=== PATIENT | male | born 1950 | race African-American/Black ===

== ENCOUNTER 2018-04-16 12:48 | Observation (INO) ==
[2018-04-16 13:18] LABS: Basophils % 0.4 % (0.0-0.8); Eosinophils # 0.1 10*3/uL (0.0-0.87); Eosinophils % 0.9 % (0.00-10.9); Hematocrit 38.5 VOL% (42.0-52.0); Hemoglobin 12.6 GM/DL (14.0-18.0); Immature Granulocytes % 0.5 %; Immature Granulocytes Absolute 0.04 #; Lymphocytes # 1.9 10*3/uL (1.4-4.0); Mean Corpuscular HGB Conc 32.7 GM/DL (32-36); Mean Corpuscular Hemoglobin 29 PG (27-34); Mean Corpuscular Volume 87.7 FL (87-102); Mean Platelet Volume 11.1 FL (9.6-12.0); Monocytes # 0.6 10*3/uL (0.11-0.8); Monocytes % 7.3 % (1.7-12.7); Neutrophils # 5.5 10*3/uL (1.4-7.4); Neutrophils % 67.9 % (38.7-73.9); Platelet Count 121 T/CUMM (130-400); Red Blood Count 4.39 MC/CUMM (3.8-5.5); Red Cell Distribution Width 13.7 % (9.3-17.3); White Blood Count 8.1 T/CUMM (4-12)
[2018-04-16 13:32] LABS: PT Patient Result 10.5 SECS; Partial Thromboplastin Time 25.8 SECS (0-40)
[2018-04-16 13:35] LABS: Alanine Aminotransferase 23 U/L (16-61); Albumin 3.5 G/DL (3.4-5.0); Alkaline Phosphatase 85 U/L (45-117); Aspartate Amino Transferase 15 U/L (0-37); Blood Urea Nitrogen 31 MG/DL (7-18); Calcium 10.1 MG/DL (8.5-10.1); Glucose 152 MG/DL (74-106); Osmolality,Calculated 290.3 MOS/KG (273-304); Potassium 4.8 MMOL/L (3.5-5.1); Sodium 141 MMOL/L (136-145); Troponin I < 0.015 NG/ML (0.00-0.045)
[2018-04-16 15:57] LABS: Apearance,Urine CLEAR (Clear); Bilirubin,Urine Negative (Negative); Blood, Urine Negative (Negative); Glucose,Urine (UA) Negative (Negative); Ketones,Urine Negative (Negative); Nitrite,Urine Negative (Negative); Protein,Urine Negative; RBC,Urine <1 /HPF (0-4); Urine Color Yellow (Yellow); Urine Specific Gravity 1.014 (1.001-1.035); Urine Urobilinogen < 2.0 EU/DL (0.2-1.0); WBC,Urine 1 /HPF (0-6)
[2018-04-16 16:10] LABS: Free T4 (Free Thyroxine) 0.98 NG/DL (0.76-1.46); Thyroid Stimulating Hormone 0.615 uIU/ml (0.358-3.74)
[2018-04-16] MEDS ORDERED: GLUCAGON 1 MG VIAL IM PRN (18:28)
[2018-04-16] MEDS ORDERED: DOCUSATE SODIUM 100 MG CAPSULE PO PRN (18:28)
[2018-04-16] MEDS ORDERED: ONDANSETRON 4 MG/2 ML VIAL IV PRN (18:28)
[2018-04-16] MEDS ORDERED: LACTULOSE 20 GM/30 ML UDCUP PO PRN (18:28)
[2018-04-16] MEDS ORDERED: DEXTROSE 50% 25 GM/50 ML VIAL IV PRN (18:28)
[2018-04-16] MEDS ORDERED: ACETAMINOPHEN 325 MG TABLET PO PRN (18:28)
[2018-04-16] MEDS ORDERED: INSULIN GLARGINE 100 UNIT/ML SUBCUT SCH (21:00)
[2018-04-16] MEDS ORDERED: ATORVASTATIN 20 MG TABLET PO SCH (21:00)
[2018-04-16] MEDS ORDERED: ENOXAPARIN 40 MG/0.4 ML SYRINGE SUBCUT SCH (21:00)
[2018-04-16] MEDS ORDERED: FAMOTIDINE 20 MG TABLET PO SCH (21:00)
[2018-04-16] MEDS ORDERED: LOSARTAN 50 MG TABLET PO SCH (21:00)
[2018-04-16] MEDS: CARVEDILOL 6.25 MG TABLET PO SCH (21:20)
[2018-04-16] MEDS: FUROSEMIDE 20 MG/2 ML VIAL IV SCH (21:20)
[2018-04-16] MEDS: INSULIN LISPRO 100 UNIT/ML SUBCUT SCH (21:25)
[2018-04-16] MEDS: MYCOPHENOLATE MOFETIL 250 MG CAPSULE PO SCH (21:25)
[2018-04-16] MEDS: TACROLIMUS 0.5 MG CAPSULE PO SCH (21:26)
[2018-04-17 05:29] LABS: Basophils % 0.4 % (0.0-0.8); Eosinophils # 0.1 10*3/uL (0.0-0.87); Eosinophils % 1.7 % (0.00-10.9); Hemoglobin 11.7 GM/DL (14.0-18.0); Immature Granulocytes % 0.4 %; Immature Granulocytes Absolute 0.03 #; Lymphocytes % 28.2 % (21.2-54.2); Mean Corpuscular HGB Conc 31.6 GM/DL (32-36); Mean Corpuscular Hemoglobin 28 PG (27-34); Mean Corpuscular Volume 88.7 FL (87-102); Mean Platelet Volume 11.5 FL (9.6-12.0); Monocytes # 0.8 10*3/uL (0.11-0.8); Neutrophils # 4.1 10*3/uL (1.4-7.4); Neutrophils % 58.3 % (38.7-73.9); Platelet Count 109 T/CUMM (130-400); Red Blood Count 4.17 MC/CUMM (3.8-5.5); Red Cell Distribution Width 13.9 % (9.3-17.3); White Blood Count 7.1 T/CUMM (4-12)
[2018-04-17 05:58] LABS: Osmolality,Calculated 291.1 MOS/KG (273-304); Potassium 4.3 MMOL/L (3.5-5.1); Risk Ratio 3.67; VLDL CHOLESTEROL 33.8 MG/DL
[2018-04-17] MEDS ORDERED: INSULIN LISPRO 100 UNIT/ML SUBCUT SCH (08:00)
[2018-04-17] MEDS: MYCOPHENOLATE MOFETIL 250 MG CAPSULE PO SCH (08:45)
[2018-04-17] MEDS: TACROLIMUS 0.5 MG CAPSULE PO SCH (08:45)
[2018-04-17] MEDS: FUROSEMIDE 20 MG/2 ML VIAL IV SCH (08:46)
[2018-04-17] MEDS: CARVEDILOL 6.25 MG TABLET PO SCH (08:46)
[2018-04-17] MEDS: INSULIN LISPRO 100 UNIT/ML SUBCUT SCH (08:47)
[2018-04-17] MEDS ORDERED: ALLOPURINOL 100 MG TABLET PO SCH (09:00)
[2018-04-17] MEDS ORDERED: predniSONE 5 MG TABLET PO SCH (09:00)
[2018-04-17] MEDS ORDERED: PANTOPRAZOLE 40 MG TABLET PO SCH (09:00)
[2018-04-17] MEDS ORDERED: CHOLECALCIFEROL 1,000 UNIT TABLET PO SCH (09:00)
[2018-04-17] MEDS ORDERED: ASPIRIN CHEW 81 MG TABLET PO SCH (09:00)
[2018-04-17 10:52] VITALS: BP 149/72
== END 2018-04-17 10:45 | disposition home or self-care (01) ==
LOC: N.EDINP 12:48 → N.ED 12:48 → N.5E 18:59
PROVIDERS: ADMIT Internal Medicine; ATTEND Internal Medicine

== ENCOUNTER 2021-07-04 21:54 | Inpatient (IN) ==
[2021-07-04 23:21] LABS: Basophils % 0.2 % (0.0-0.8); Eosinophils % 0.1 % (0.00-10.9); Hematocrit 33.5 VOL% (42.0-52.0); Hemoglobin 11.1 GM/DL (14.0-18.0); Immature Granulocytes % 0.8 %; Immature Granulocytes Absolute 0.13 #; Lymphocytes # 1.7 10*3/uL (1.4-4.0); Lymphocytes % 11.1 % (21.2-54.2); Mean Corpuscular HGB Conc 33.1 GM/DL (32-36); Mean Corpuscular Volume 87.9 FL (87-102); Mean Platelet Volume 10.3 FL (9.6-12.0); Monocytes % 10.1 % (1.7-12.7); Neutrophils % 77.7 % (38.7-73.9); Platelet Count 134 T/CUMM (130-400); Red Blood Count 3.81 MC/CUMM (3.8-5.5); Red Cell Distribution Width 13.3 % (9.3-17.3); White Blood Count 15.4 T/CUMM (4-12)
[2021-07-04 23:29] LABS: INR 1.1; PT Patient Result 12.4 SECS (10.5-12.0)
[2021-07-05 00:47] LABS: Alanine Aminotransferase 16 U/L (16-61); Alkaline Phosphatase 84 U/L (45-117); Aspartate Amino Transferase 24 U/L (0-37); Blood Urea Nitrogen 55 MG/DL (7-18); Calcium 9.4 MG/DL (8.5-10.1); Carbon Dioxide 23 MMOL/L (21-32); Estimated Glom Filtration Rate 56 ML/MIN; Glucose 91 MG/DL (74-106); Osmolality,Calculated 284.1 MOS/KG (273-304); Potassium 4.3 MMOL/L (3.5-5.1); Sodium 135 MMOL/L (136-145); Total Protein 6.7 G/DL (6.4-8.2)
[2021-07-05 01:35] LABS: Lactic Acid 2.5 MMOL/L (0.4-2.0)
[2021-07-05 01:59] LABS: Bilirubin,Urine Negative (Negative); Blood, Urine Negative (Negative); Glucose,Urine (UA) 100 mg/dL (Negative); Granular Casts,Urine 1 /LPF (0-1); Hyaline Casts,Urine 56 /LPF (0-3); Ketones,Urine Negative (Negative); Nitrite,Urine Negative (Negative); Protein,Urine Negative; RBC,Urine 1 /HPF (0-4); Urine Appearance Clear (Clear); Urine Color Yellow (Yellow)
[2021-07-05 02:00] LABS: Urine Urobilinogen 0.2 EU/DL (<2.0)
[2021-07-05] MEDS ORDERED: PIPERACILLIN/TAZOBACTAM 3,375 MG in SODIUM CHLORIDE 0.9% 100 ML IV STA (02:05)
[2021-07-05 02:29] LABS: Reactive Lymphocytes 1+
[2021-07-05 02:30] LABS: Hypochromia 1+; Platelet Estimate Normal
[2021-07-05 02:31] LABS: Microcytosis 1+
[2021-07-05] MEDS ORDERED: DEXTROSE 10% 250 ML BAG IV PRN (03:08)
[2021-07-05] MEDS ORDERED: GLUCAGON 1 MG VIAL IM PRN (03:08)
[2021-07-05] MEDS ORDERED: hydrALAZINE 20 MG/1 ML VIAL IV PRN (03:08)
[2021-07-05] MEDS ORDERED: MORPHINE 4 MG/1 ML VIAL IV PRN (03:08)
[2021-07-05 04:32] LABS: Risk Ratio 2.39; Thyroid Stimulating Hormone 0.43 uIU/ml (0.358-3.74); VLDL Cholesterol 19.6 MG/DL
[2021-07-05] MEDS: FUROSEMIDE 40 MG/4 ML VIAL IV SCH ×3 (05:08→17:02)
[2021-07-05] MEDS: ALBUTEROL/IPRATROPIUM 3 ML NEB RESP TX SCH ×3 (07:55→19:33)
[2021-07-05] MEDS: PIPERACILLIN/TAZOBACTAM 3,375 MG in SODIUM CHLORIDE 0.9% 100 ML IV SCH ×2 (09:50→18:58)
[2021-07-05] MEDS: INSULIN LISPRO 100 UNIT/ML SUBCUT SCH ×4 (10:15→21:35)
[2021-07-05] MEDS: PANTOPRAZOLE 40 MG TABLET PO SCH (10:16)
[2021-07-05] MEDS: ENOXAPARIN 40 MG/0.4 ML SYRINGE SUBCUT SCH (10:16)
[2021-07-05] MEDS: ACETAMINOPHEN 325 MG TABLET PO PRN (22:51)
[2021-07-06] MEDS: ALBUTEROL/IPRATROPIUM 3 ML NEB RESP TX SCH ×4 (00:24→19:26)
[2021-07-06] MEDS: PIPERACILLIN/TAZOBACTAM 3,375 MG in SODIUM CHLORIDE 0.9% 100 ML IV SCH ×3 (02:20→21:46)
[2021-07-06 05:13] LABS: Basophils % 0.2 % (0.0-0.8); Eosinophils # 0.1 10*3/uL (0.0-0.87); Hemoglobin 10.4 GM/DL (14.0-18.0); Immature Granulocytes % 0.8 %; Immature Granulocytes Absolute 0.11 #; Lymphocytes # 1.6 10*3/uL (1.4-4.0); Lymphocytes % 11.8 % (21.2-54.2); Mean Corpuscular HGB Conc 32.5 GM/DL (32-36); Mean Corpuscular Volume 87.2 FL (87-102); Mean Platelet Volume 10.2 FL (9.6-12.0); Monocytes % 10.6 % (1.7-12.7); Neutrophils % 75.6 % (38.7-73.9); Platelet Count 151 T/CUMM (130-400); Red Blood Count 3.67 MC/CUMM (3.8-5.5); Red Cell Distribution Width 13.3 % (9.3-17.3); White Blood Count 13.6 T/CUMM (4-12)
[2021-07-06 05:35] LABS: Calcium 9.5 MG/DL (8.5-10.1); Osmolality,Calculated 289.5 MOS/KG (273-304); Potassium 4.6 MMOL/L (3.5-5.1)
[2021-07-06] MEDS: FUROSEMIDE 40 MG/4 ML VIAL IV SCH (09:23)
[2021-07-06] MEDS: INSULIN LISPRO 100 UNIT/ML SUBCUT SCH ×4 (09:26→21:48)
[2021-07-06] MEDS ORDERED: VANCOMYCIN INJ 2,000 MG in SODIUM CHLORIDE 0.9% 500 ML IV PRN (11:58)
[2021-07-06] MEDS: carvediloL 12.5 MG TABLET PO SCH ×2 (11:59→21:48)
[2021-07-06] MEDS: FAMOTIDINE 20 MG TABLET PO SCH (11:59)
[2021-07-06] MEDS: ENOXAPARIN 40 MG/0.4 ML SYRINGE SUBCUT SCH (11:59)
[2021-07-06] MEDS: ASPIRIN CHEW 81 MG TABLET PO SCH (11:59)
[2021-07-06] MEDS ORDERED: VANCOMYCIN INJ 2,000 MG in SODIUM CHLORIDE 0.9% 250 ML IV SCH (12:00)
[2021-07-06] MEDS: predniSONE 5 MG TABLET PO SCH (12:13)
[2021-07-06] MEDS: PANTOPRAZOLE 40 MG TABLET PO SCH (12:13)
[2021-07-06] MEDS: CHOLECALCIFEROL 1,000 UNIT TABLET PO SCH (12:14)
[2021-07-06] MEDS: TACROLIMUS 5 MG PO SCH (12:14)
[2021-07-06] MEDS ORDERED: VANCOMYCIN INJ 2,500 MG in SODIUM CHLORIDE 0.9% 500 ML IV ONE (14:00)
[2021-07-06] MEDS ORDERED: LOSARTAN 50 MG TABLET PO SCH (19:00)
[2021-07-06] MEDS: ATORVASTATIN 20 MG TABLET PO SCH (21:48)
[2021-07-06] MEDS: allopurinoL 100 MG TABLET PO SCH (21:48)
[2021-07-06] MEDS: INSULIN GLARGINE 100 UNIT/ML SUBCUT SCH (21:49)
[2021-07-06] MEDS: MYCOPHENOLATE MOFETIL 250 MG CAPSULE PO SCH (22:06)
[2021-07-06] MEDS: TACROLIMUS 4 MG PO SCH (22:06)
[2021-07-07] MEDS: ALBUTEROL/IPRATROPIUM 3 ML NEB RESP TX SCH ×4 (00:24→18:58)
[2021-07-07] MEDS: PIPERACILLIN/TAZOBACTAM 3,375 MG in SODIUM CHLORIDE 0.9% 100 ML IV SCH ×2 (05:01→09:50)
[2021-07-07 05:24] LABS: Basophils % 0.3 % (0.0-0.8); Eosinophils # 0.1 10*3/uL (0.0-0.87); Eosinophils % 1.1 % (0.00-10.9); Hematocrit 30.1 VOL% (42.0-52.0); Hemoglobin 9.7 GM/DL (14.0-18.0); Immature Granulocytes % 0.5 %; Immature Granulocytes Absolute 0.06 #; Lymphocytes # 1.6 10*3/uL (1.4-4.0); Lymphocytes % 13.5 % (21.2-54.2); Mean Corpuscular HGB Conc 32.2 GM/DL (32-36); Mean Corpuscular Volume 89.1 FL (87-102); Mean Platelet Volume 10.6 FL (9.6-12.0); Monocytes % 10.6 % (1.7-12.7); Platelet Count 143 T/CUMM (130-400); Red Blood Count 3.38 MC/CUMM (3.8-5.5); Red Cell Distribution Width 13.5 % (9.3-17.3); White Blood Count 11.7 T/CUMM (4-12)
[2021-07-07 05:47] LABS: Calcium 9.6 MG/DL (8.5-10.1); Osmolality,Calculated 296.2 MOS/KG (273-304); Potassium 4.4 MMOL/L (3.5-5.1)
[2021-07-07] MEDS: INSULIN LISPRO 100 UNIT/ML SUBCUT SCH ×4 (08:37→21:16)
[2021-07-07] MEDS: TACROLIMUS 5 MG PO SCH (08:38)
[2021-07-07] MEDS: carvediloL 12.5 MG TABLET PO SCH ×2 (08:40→21:13)
[2021-07-07] MEDS: predniSONE 5 MG TABLET PO SCH (08:40)
[2021-07-07] MEDS: PANTOPRAZOLE 40 MG TABLET PO SCH (08:40)
[2021-07-07] MEDS: FAMOTIDINE 20 MG TABLET PO SCH (08:40)
[2021-07-07] MEDS: MYCOPHENOLATE MOFETIL 250 MG CAPSULE PO SCH ×2 (08:40→21:15)
[2021-07-07] MEDS: CHOLECALCIFEROL 1,000 UNIT TABLET PO SCH (08:41)
[2021-07-07] MEDS: ASPIRIN CHEW 81 MG TABLET PO SCH (08:41)
[2021-07-07] MEDS ORDERED: AMPICILLIN INJ 2,000 MG in SODIUM CHLORIDE 0.9% 100 ML IV SCH (16:00)
[2021-07-07] MEDS: CEFEPIME 1,000 MG in SODIUM CHLORIDE 0.9% 100 ML IV SCH ×2 (16:35→23:40)
[2021-07-07] MEDS: GENTAMICIN INJ 100 MG in SODIUM CHLORIDE 0.9% 100 ML IV SCH (17:38)
[2021-07-07] MEDS: ATORVASTATIN 20 MG TABLET PO SCH (21:13)
[2021-07-07] MEDS: allopurinoL 100 MG TABLET PO SCH (21:13)
[2021-07-07] MEDS: INSULIN GLARGINE 100 UNIT/ML SUBCUT SCH (21:14)
[2021-07-07] MEDS: TACROLIMUS 4 MG PO SCH (21:16)
[2021-07-07] MEDS: metroNIDAZOLE INJ 500 MG/100 ML PREMIX IV SCH (21:27)
[2021-07-08] MEDS: ALBUTEROL/IPRATROPIUM 3 ML NEB RESP TX SCH ×4 (01:49→19:14)
[2021-07-08] MEDS: ACETAMINOPHEN 325 MG TABLET PO PRN (03:08)
[2021-07-08 04:40] LABS: Basophils % 0.3 % (0.0-0.8); Eosinophils # 0.1 10*3/uL (0.0-0.87); Eosinophils % 0.7 % (0.00-10.9); Hematocrit 29.4 VOL% (42.0-52.0); Hemoglobin 9.6 GM/DL (14.0-18.0); Immature Granulocytes % 0.8 %; Immature Granulocytes Absolute 0.09 #; Lymphocytes # 1.3 10*3/uL (1.4-4.0); Lymphocytes % 11.1 % (21.2-54.2); Mean Corpuscular HGB Conc 32.7 GM/DL (32-36); Mean Corpuscular Volume 87.5 FL (87-102); Mean Platelet Volume 10.1 FL (9.6-12.0); Monocytes % 10.9 % (1.7-12.7); Neutrophils % 76.2 % (38.7-73.9); Platelet Count 149 T/CUMM (130-400); Red Blood Count 3.36 MC/CUMM (3.8-5.5); Red Cell Distribution Width 13.7 % (9.3-17.3); White Blood Count 11.8 T/CUMM (4-12)
[2021-07-08 04:59] LABS: Osmolality,Calculated 303.8 MOS/KG (273-304); Potassium 4.6 MMOL/L (3.5-5.1); Uric Acid 10.4 MG/DL (3.5-7.2)
[2021-07-08] MEDS: metroNIDAZOLE INJ 500 MG/100 ML PREMIX IV SCH ×3 (05:10→21:08)
[2021-07-08 07:34] LABS: Bacteria,Urine Occasional /HPF (Few); Bilirubin,Urine Negative (Negative); Blood, Urine Negative (Negative); Glucose,Urine (UA) Negative (Negative); Ketones,Urine Trace mg/dL (Negative); Mucus,Urine Occasional /LPF (Occasional); Nitrite,Urine Negative (Negative); Protein,Urine Negative; RBC,Urine 2 /HPF (0-4); Urine Appearance Clear (Clear); Urine Color Yellow (Yellow); Urine Specific Gravity 1.015 (1.001-1.035); Urine Urobilinogen 0.2 EU/DL (<2.0)
[2021-07-08] MEDS: CEFEPIME 1,000 MG in SODIUM CHLORIDE 0.9% 100 ML IV SCH ×2 (08:33→16:02)
[2021-07-08] MEDS: INSULIN LISPRO 100 UNIT/ML SUBCUT SCH ×4 (08:39→21:08)
[2021-07-08] MEDS: ASPIRIN CHEW 81 MG TABLET PO SCH (08:40)
[2021-07-08] MEDS: predniSONE 5 MG TABLET PO SCH (08:40)
[2021-07-08] MEDS: PANTOPRAZOLE 40 MG TABLET PO SCH (08:40)
[2021-07-08] MEDS: CHOLECALCIFEROL 1,000 UNIT TABLET PO SCH (08:40)
[2021-07-08] MEDS: MYCOPHENOLATE MOFETIL 250 MG CAPSULE PO SCH ×2 (08:40→21:09)
[2021-07-08] MEDS: carvediloL 12.5 MG TABLET PO SCH ×2 (08:40→21:08)
[2021-07-08] MEDS: TACROLIMUS 5 MG PO SCH (08:42)
[2021-07-08] MEDS: FAMOTIDINE 20 MG TABLET PO SCH (08:45)
[2021-07-08] MEDS ORDERED: VANCOMYCIN INJ 2,000 MG in SODIUM CHLORIDE 0.9% 500 ML IV ONE (11:00)
[2021-07-08] MEDS ORDERED: ALBUTEROL/IPRATROPIUM 3 ML NEB RESP TX ONE (11:46)
[2021-07-08] MEDS ORDERED: FUROSEMIDE 40 MG/4 ML VIAL IV ONE (12:01)
[2021-07-08] MEDS: SODIUM CHLORIDE 0.9% 1,000 ML IV SCH (12:16)
[2021-07-08] MEDS: GENTAMICIN INJ 100 MG in SODIUM CHLORIDE 0.9% 100 ML IV SCH (17:20)
[2021-07-08] MEDS ORDERED: INSULIN GLARGINE 100 UNIT/ML SUBCUT SCH (21:00)
[2021-07-08] MEDS: TACROLIMUS 4 MG PO SCH (21:08)
[2021-07-08] MEDS: ATORVASTATIN 20 MG TABLET PO SCH (21:08)
[2021-07-09] MEDS: CEFEPIME 1,000 MG in SODIUM CHLORIDE 0.9% 100 ML IV SCH ×5 (00:30→23:40)
[2021-07-09] MEDS: ALBUTEROL/IPRATROPIUM 3 ML NEB RESP TX SCH ×4 (00:34→19:48)
[2021-07-09] MEDS: metroNIDAZOLE INJ 500 MG/100 ML PREMIX IV SCH ×3 (04:49→22:18)
[2021-07-09 05:27] LABS: Basophils % 0.2 % (0.0-0.8); Eosinophils # 0.1 10*3/uL (0.0-0.87); Eosinophils % 0.7 % (0.00-10.9); Hematocrit 31.9 VOL% (42.0-52.0); Hemoglobin 10.3 GM/DL (14.0-18.0); Immature Granulocytes % 0.7 %; Immature Granulocytes Absolute 0.09 #; Lymphocytes # 1.4 10*3/uL (1.4-4.0); Lymphocytes % 10.9 % (21.2-54.2); Mean Corpuscular HGB Conc 32.3 GM/DL (32-36); Mean Corpuscular Volume 87.4 FL (87-102); Mean Platelet Volume 9.8 FL (9.6-12.0); Monocytes % 10.2 % (1.7-12.7); Neutrophils % 77.3 % (38.7-73.9); Platelet Count 159 T/CUMM (130-400); Red Blood Count 3.65 MC/CUMM (3.8-5.5); Red Cell Distribution Width 13.6 % (9.3-17.3); White Blood Count 12.9 T/CUMM (4-12)
[2021-07-09 05:43] LABS: Calcium 9.4 MG/DL (8.5-10.1); Osmolality,Calculated 301.4 MOS/KG (273-304); Potassium 4.7 MMOL/L (3.5-5.1)
[2021-07-09] MEDS: FUROSEMIDE 40 MG TABLET PO SCH (09:22)
[2021-07-09] MEDS: PANTOPRAZOLE 40 MG TABLET PO SCH (09:23)
[2021-07-09] MEDS: carvediloL 12.5 MG TABLET PO SCH ×2 (09:23→22:18)
[2021-07-09] MEDS: allopurinoL 300 MG TABLET PO SCH (09:23)
[2021-07-09] MEDS: ASPIRIN CHEW 81 MG TABLET PO SCH (09:23)
[2021-07-09] MEDS: CHOLECALCIFEROL 1,000 UNIT TABLET PO SCH (09:23)
[2021-07-09] MEDS: INSULIN LISPRO 100 UNIT/ML SUBCUT SCH ×4 (09:23→22:18)
[2021-07-09] MEDS: FAMOTIDINE 20 MG TABLET PO SCH (09:23)
[2021-07-09] MEDS: predniSONE 5 MG TABLET PO SCH (09:24)
[2021-07-09] MEDS: TACROLIMUS 5 MG PO SCH (09:27)
[2021-07-09] MEDS: MYCOPHENOLATE MOFETIL 250 MG CAPSULE PO SCH ×2 (09:27→22:18)
[2021-07-09] MEDS ORDERED: BUPIVACAINE MPF 0.25% 30 ML VIAL ONE (11:44)
[2021-07-09] MEDS ORDERED: LIDOCAINE 1% 50 ML VIAL ONE (11:45)
[2021-07-09] MEDS: GENTAMICIN INJ 100 MG in SODIUM CHLORIDE 0.9% 100 ML IV SCH ×2 (14:13→23:55)
[2021-07-09] MEDS: SODIUM CHLORIDE 0.9% 1,000 ML IV SCH (16:02)
[2021-07-09] MEDS: VANCOMYCIN INJ 2,000 MG in SODIUM CHLORIDE 0.9% 500 ML IV SCH (17:31)
[2021-07-09] MEDS: INSULIN GLARGINE 100 UNIT/ML SUBCUT SCH (22:10)
[2021-07-09] MEDS: TACROLIMUS 4 MG PO SCH (22:18)
[2021-07-09] MEDS: ATORVASTATIN 20 MG TABLET PO SCH (22:18)
[2021-07-10] MEDS: ALBUTEROL/IPRATROPIUM 3 ML NEB RESP TX SCH ×4 (00:22→19:35)
[2021-07-10] MEDS: CEFEPIME 1,000 MG in SODIUM CHLORIDE 0.9% 100 ML IV SCH ×2 (03:50→13:19)
[2021-07-10] MEDS: metroNIDAZOLE INJ 500 MG/100 ML PREMIX IV SCH (05:25)
[2021-07-10] MEDS: INSULIN LISPRO 100 UNIT/ML SUBCUT SCH ×5 (11:32→22:32)
[2021-07-10 11:39] LABS: Basophils % 0.3 % (0.0-0.8); Eosinophils # 0.1 10*3/uL (0.0-0.87); Eosinophils % 1.1 % (0.00-10.9); Hematocrit 31.9 VOL% (42.0-52.0); Immature Granulocytes % 0.7 %; Immature Granulocytes Absolute 0.08 #; Lymphocytes # 1.2 10*3/uL (1.4-4.0); Lymphocytes % 10.1 % (21.2-54.2); Mean Corpuscular HGB Conc 31.3 GM/DL (32-36); Mean Corpuscular Volume 88.9 FL (87-102); Mean Platelet Volume 9.7 FL (9.6-12.0); Neutrophils % 77.8 % (38.7-73.9); Platelet Count 172 T/CUMM (130-400); Red Blood Count 3.59 MC/CUMM (3.8-5.5); Red Cell Distribution Width 13.7 % (9.3-17.3); White Blood Count 11.5 T/CUMM (4-12)
[2021-07-10 12:01] LABS: Albumin 2.1 G/DL (3.4-5.0); Bilirubin,Total 0.5 MG/DL (0.20-1.00); Calcium 9.2 MG/DL (8.5-10.1); Osmolality,Calculated 298.7 MOS/KG (273-304); Total Protein 6.5 G/DL (6.4-8.2)
[2021-07-10 13:02] LABS: VBG Oxygen Saturation 96.4 %; VBG PCO2 38.5 MMHG (41-51); VBG PH 7.349; VBG PO2 88.5 MMHG (17-40); VBG Total CO2 19.3 MMOL/L
[2021-07-10] MEDS: VANCOMYCIN INJ 2,000 MG in SODIUM CHLORIDE 0.9% 500 ML IV SCH (13:19)
[2021-07-10] MEDS: CHOLECALCIFEROL 1,000 UNIT TABLET PO SCH (14:11)
[2021-07-10] MEDS: carvediloL 12.5 MG TABLET PO SCH ×2 (14:11→20:46)
[2021-07-10] MEDS: predniSONE 5 MG TABLET PO SCH (14:12)
[2021-07-10] MEDS: FAMOTIDINE 20 MG TABLET PO SCH (14:12)
[2021-07-10] MEDS: ASPIRIN CHEW 81 MG TABLET PO SCH (14:12)
[2021-07-10] MEDS: PANTOPRAZOLE 40 MG TABLET PO SCH (14:12)
[2021-07-10] MEDS: FUROSEMIDE 40 MG TABLET PO SCH (14:12)
[2021-07-10] MEDS: TACROLIMUS 5 MG PO SCH (14:13)
[2021-07-10] MEDS: MYCOPHENOLATE MOFETIL 250 MG CAPSULE PO SCH ×2 (14:13→20:46)
[2021-07-10] MEDS: allopurinoL 300 MG TABLET PO SCH (14:15)
[2021-07-10] MEDS: GENTAMICIN INJ 100 MG in SODIUM CHLORIDE 0.9% 100 ML IV SCH (14:21)
[2021-07-10] MEDS: AMPICILLIN/SULBACTAM 3,000 MG in SODIUM CHLORIDE 0.9% 100 ML IV SCH ×2 (16:59→20:55)
[2021-07-10] MEDS: ATORVASTATIN 20 MG TABLET PO SCH (20:46)
[2021-07-10] MEDS: TACROLIMUS 4 MG PO SCH (20:54)
[2021-07-10] MEDS: INSULIN GLARGINE 100 UNIT/ML SUBCUT SCH (22:31)
[2021-07-10] MEDS ORDERED: GENTAMICIN INJ 100 MG/100 ML PREMIX IV SCH (23:00)
[2021-07-11] MEDS: ALBUTEROL/IPRATROPIUM 3 ML NEB RESP TX SCH ×5 (03:22→19:20)
[2021-07-11] MEDS: AMPICILLIN/SULBACTAM 3,000 MG in SODIUM CHLORIDE 0.9% 100 ML IV SCH ×3 (04:13→18:48)
[2021-07-11] MEDS: FUROSEMIDE 40 MG TABLET PO SCH (11:24)
[2021-07-11] MEDS: FAMOTIDINE 20 MG TABLET PO SCH (11:24)
[2021-07-11] MEDS: ASPIRIN CHEW 81 MG TABLET PO SCH (11:24)
[2021-07-11] MEDS: carvediloL 12.5 MG TABLET PO SCH ×2 (11:25→20:57)
[2021-07-11] MEDS: predniSONE 5 MG TABLET PO SCH (11:25)
[2021-07-11] MEDS: CHOLECALCIFEROL 1,000 UNIT TABLET PO SCH (11:25)
[2021-07-11] MEDS: PANTOPRAZOLE 40 MG TABLET PO SCH (11:25)
[2021-07-11] MEDS: allopurinoL 300 MG TABLET PO SCH (11:25)
[2021-07-11] MEDS: MYCOPHENOLATE MOFETIL 250 MG CAPSULE PO SCH ×2 (11:26→20:56)
[2021-07-11] MEDS: TACROLIMUS 5 MG PO SCH (11:26)
[2021-07-11] MEDS: INSULIN LISPRO 100 UNIT/ML SUBCUT SCH ×6 (11:27→20:59)
[2021-07-11 11:39] LABS: Basophils % 0.2 % (0.0-0.8); Eosinophils # 0.1 10*3/uL (0.0-0.87); Eosinophils % 0.8 % (0.00-10.9); Hematocrit 31.6 VOL% (42.0-52.0); Hemoglobin 10.1 GM/DL (14.0-18.0); Immature Granulocytes % 0.9 %; Immature Granulocytes Absolute 0.11 #; Lymphocytes # 1.2 10*3/uL (1.4-4.0); Lymphocytes % 9.8 % (21.2-54.2); Monocytes % 9.4 % (1.7-12.7); Neutrophils % 78.9 % (38.7-73.9); Platelet Count 164 T/CUMM (130-400); Red Blood Count 3.55 MC/CUMM (3.8-5.5); Red Cell Distribution Width 13.7 % (9.3-17.3); White Blood Count 12.3 T/CUMM (4-12)
[2021-07-11 11:55] LABS: Calcium 9.8 MG/DL (8.5-10.1); Osmolality,Calculated 296.7 MOS/KG (273-304); Potassium 4.8 MMOL/L (3.5-5.1)
[2021-07-11] MEDS: GENTAMICIN INJ 100 MG/100 ML PREMIX IV SCH ×2 (13:20→23:12)
[2021-07-11] MEDS: ATORVASTATIN 20 MG TABLET PO SCH (20:57)
[2021-07-11] MEDS: INSULIN GLARGINE 100 UNIT/ML SUBCUT SCH (20:59)
[2021-07-11] MEDS: TACROLIMUS 4 MG PO SCH (21:17)
[2021-07-12] MEDS: AMPICILLIN/SULBACTAM 3,000 MG in SODIUM CHLORIDE 0.9% 100 ML IV SCH ×2 (02:09→06:11)
[2021-07-12] MEDS: ALBUTEROL/IPRATROPIUM 3 ML NEB RESP TX SCH ×4 (02:14→18:55)
[2021-07-12 06:00] LABS: Basophils % 0.4 % (0.0-0.8); Eosinophils # 0.1 10*3/uL (0.0-0.87); Eosinophils % 0.8 % (0.00-10.9); Hematocrit 32.7 VOL% (42.0-52.0); Hemoglobin 10.8 GM/DL (14.0-18.0); Immature Granulocytes Absolute 0.11 #; Lymphocytes # 1.3 10*3/uL (1.4-4.0); Lymphocytes % 11.6 % (21.2-54.2); Mean Platelet Volume 9.1 FL (9.6-12.0); Monocytes % 9.7 % (1.7-12.7); NRBC # 0.02 10*3/uL; Neutrophils % 76.5 % (38.7-73.9); Platelet Count 185 T/CUMM (130-400); Red Blood Count 3.76 MC/CUMM (3.8-5.5); Red Cell Distribution Width 13.8 % (9.3-17.3); White Blood Count 11.3 T/CUMM (4-12)
[2021-07-12 06:11] LABS: Calcium 10.1 MG/DL (8.5-10.1); Osmolality,Calculated 295.8 MOS/KG (273-304); Potassium 4.6 MMOL/L (3.5-5.1)
[2021-07-12] MEDS: INSULIN LISPRO 100 UNIT/ML SUBCUT SCH ×6 (08:44→22:27)
[2021-07-12] MEDS ORDERED: LIDOCAINE 2% 5 ML VIAL ONE (10:32)
[2021-07-12] MEDS ORDERED: propofoL 200 MG/20 ML VIAL IV ONE (10:32)
[2021-07-12] MEDS ORDERED: ETOMIDATE 40 MG/20 ML VIAL IV ONE (10:33)
[2021-07-12] MEDS: allopurinoL 300 MG TABLET PO SCH (11:03)
[2021-07-12] MEDS: predniSONE 5 MG TABLET PO SCH (11:03)
[2021-07-12] MEDS: PANTOPRAZOLE 40 MG TABLET PO SCH (11:03)
[2021-07-12] MEDS: MYCOPHENOLATE MOFETIL 250 MG CAPSULE PO SCH ×2 (11:03→22:26)
[2021-07-12] MEDS: carvediloL 12.5 MG TABLET PO SCH ×2 (11:03→22:26)
[2021-07-12] MEDS: CHOLECALCIFEROL 1,000 UNIT TABLET PO SCH (11:03)
[2021-07-12] MEDS: FAMOTIDINE 20 MG TABLET PO SCH (11:04)
[2021-07-12] MEDS: ASPIRIN CHEW 81 MG TABLET PO SCH (11:04)
[2021-07-12] MEDS: TACROLIMUS 5 MG PO SCH (11:05)
[2021-07-12] MEDS: FUROSEMIDE 40 MG TABLET PO SCH (11:07)
[2021-07-12] MEDS: GENTAMICIN INJ 100 MG/100 ML PREMIX IV SCH (11:07)
[2021-07-12] MEDS: AMPICILLIN INJ 2,000 MG in SODIUM CHLORIDE 0.9% 100 ML IV SCH ×3 (13:08→20:30)
[2021-07-12] MEDS ORDERED: MIDAZOLAM 10 MG/2 ML VIAL IV ONE (13:30)
[2021-07-12] MEDS ORDERED: fentaNYL 100 MCG/2 ML VIAL IV ONE (13:30)
[2021-07-12] MEDS ORDERED: HEPARIN/NACL 0.9% 2 UNITS/ML 4,000 UNIT/2,000 ML BAG IV ONE (14:18)
[2021-07-12] MEDS ORDERED: MIDAZOLAM 2 MG/2 ML VIAL ONE (14:55)
[2021-07-12] MEDS ORDERED: HEPARIN 5,000 UNIT/1 ML VIAL ONE (15:01)
[2021-07-12] MEDS ORDERED: GLUCAGON 1 MG VIAL IM PRN ×2 (16:16→16:43)
[2021-07-12] MEDS ORDERED: DEXTROSE 50% 25 GM/50 ML VIAL IV PRN (16:16)
[2021-07-12] MEDS ORDERED: DEXTROSE 10% 250 ML BAG IV PRN (16:43)
[2021-07-12] MEDS: SODIUM CHLORIDE 0.45% 1,000 ML IV SCH (17:19)
[2021-07-12] MEDS: ATORVASTATIN 20 MG TABLET PO SCH (22:26)
[2021-07-12] MEDS: INSULIN GLARGINE 100 UNIT/ML SUBCUT SCH (22:27)
[2021-07-12] MEDS: TACROLIMUS 4 MG PO SCH (22:27)
[2021-07-13] MEDS: AMPICILLIN INJ 2,000 MG in SODIUM CHLORIDE 0.9% 100 ML IV SCH ×6 (00:06→22:16)
[2021-07-13] MEDS: ALBUTEROL/IPRATROPIUM 3 ML NEB RESP TX SCH ×4 (00:16→19:54)
[2021-07-13 07:56] LABS: Basophils % 0.4 % (0.0-0.8); Eosinophils # 0.1 10*3/uL (0.0-0.87); Eosinophils % 0.6 % (0.00-10.9); Hematocrit 30.6 VOL% (42.0-52.0); Hemoglobin 9.8 GM/DL (14.0-18.0); Immature Granulocytes % 1.2 %; Immature Granulocytes Absolute 0.13 #; Lymphocytes # 1.3 10*3/uL (1.4-4.0); Lymphocytes % 11.4 % (21.2-54.2); Mean Corpuscular Volume 87.4 FL (87-102); Mean Platelet Volume 8.9 FL (9.6-12.0); Monocytes % 9.5 % (1.7-12.7); Neutrophils % 76.9 % (38.7-73.9); Platelet Count 180 T/CUMM (130-400); Red Cell Distribution Width 14.1 % (9.3-17.3); White Blood Count 11.1 T/CUMM (4-12)
[2021-07-13 08:10] LABS: Calcium 9.3 MG/DL (8.5-10.1); Osmolality,Calculated 303.3 MOS/KG (273-304)
[2021-07-13] MEDS: INSULIN LISPRO 100 UNIT/ML SUBCUT SCH ×6 (09:03→22:19)
[2021-07-13] MEDS: SODIUM CHLORIDE 0.45% 1,000 ML IV SCH (10:56)
[2021-07-13] MEDS ORDERED: GENTAMICIN INJ 80 MG/50 ML PREMIX IV SCH (11:00)
[2021-07-13] MEDS ORDERED: carvediloL 25 MG TABLET PO SCH (11:03)
[2021-07-13] MEDS ORDERED: fentaNYL 2 MCG/ROPIV 0.2% EPID 0 ML EPIDURAL ONE (11:11)
[2021-07-13] MEDS: carvediloL 12.5 MG TABLET PO SCH (11:13)
[2021-07-13] MEDS ORDERED: BUPIVACAINE 0.5% 50 ML VIAL ONE (11:32)
[2021-07-13] MEDS ORDERED: DEXAMETHASONE 4 MG/1 ML VIAL ONE ×2 (11:32→12:31)
[2021-07-13] MEDS ORDERED: KETAMINE 500 MG/10 ML VIAL ONE (11:33)
[2021-07-13] MEDS ORDERED: MIDAZOLAM 2 MG/2 ML VIAL ONE (11:33)
[2021-07-13] MEDS ORDERED: LIDOCAINE 2% 5 ML VIAL ONE (12:31)
[2021-07-13] MEDS ORDERED: ETOMIDATE 40 MG/20 ML VIAL IV ONE (12:31)
[2021-07-13] MEDS ORDERED: SEVOFLURANE 1 UNIT/15 MINUTE INH ONE ×6 (12:31→13:30)
[2021-07-13] MEDS ORDERED: ONDANSETRON 4 MG/2 ML VIAL ONE (12:31)
[2021-07-13] MEDS ORDERED: ACETAMINOPHEN INJ 1,000 MG/100 ML VIAL IV ONE (12:31)
[2021-07-13] MEDS ORDERED: KETOROLAC 30 MG/1 ML VIAL ONE (13:12)
[2021-07-13] MEDS ORDERED: PHENYLEPHRINE 1 MG/10 ML SYRINGE IV ONE (13:28)
[2021-07-13] MEDS ORDERED: ePHEDrine 50 MG/ML VIAL ONE (13:30)
[2021-07-13] MEDS ORDERED: NALOXONE 0.4 MG/ML VIAL IV PRN (13:43)
[2021-07-13] MEDS ORDERED: GLUCAGON 1 MG VIAL IM PRN (13:44)
[2021-07-13] MEDS ORDERED: DEXTROSE 10% 250 ML BAG IV PRN (13:44)
[2021-07-13] MEDS ORDERED: MORPHINE 2 MG/1 ML SYRINGE IV PRN (14:22)
[2021-07-13] MEDS ORDERED: flumazeniL 0.5 MG/5 ML VIAL IV ONE ×2 (14:48)
[2021-07-13 14:58] LABS: Hematocrit 29.4 VOL% (42.0-52.0); Hemoglobin 9.4 GM/DL (14.0-18.0)
[2021-07-13] MEDS: MYCOPHENOLATE MOFETIL 250 MG CAPSULE PO SCH ×2 (15:03→22:20)
[2021-07-13] MEDS: TACROLIMUS 5 MG PO SCH (15:03)
[2021-07-13] MEDS: PANTOPRAZOLE 40 MG TABLET PO SCH (16:33)
[2021-07-13] MEDS: CHOLECALCIFEROL 1,000 UNIT TABLET PO SCH (16:33)
[2021-07-13] MEDS: FUROSEMIDE 40 MG TABLET PO SCH (16:33)
[2021-07-13] MEDS: FAMOTIDINE 20 MG TABLET PO SCH (16:33)
[2021-07-13] MEDS: ASPIRIN CHEW 81 MG TABLET PO SCH (16:33)
[2021-07-13] MEDS: allopurinoL 300 MG TABLET PO SCH (16:34)
[2021-07-13] MEDS: predniSONE 5 MG TABLET PO SCH (16:34)
[2021-07-13] MEDS: KETOROLAC 10 MG TABLET PO SCH (17:45)
[2021-07-13] MEDS: HYDROmorphone PCA 30 MG/30 ML SYRINGE IV SCH (18:59)
[2021-07-13] MEDS: INSULIN GLARGINE 100 UNIT/ML SUBCUT SCH (22:19)
[2021-07-13] MEDS: ATORVASTATIN 20 MG TABLET PO SCH (22:20)
[2021-07-13] MEDS: carvediloL 25 MG TABLET PO SCH (22:20)
[2021-07-13] MEDS: TACROLIMUS 4 MG PO SCH (22:21)
[2021-07-14] MEDS: ALBUTEROL/IPRATROPIUM 3 ML NEB RESP TX SCH ×4 (00:29→20:00)
[2021-07-14] MEDS: AMPICILLIN INJ 2,000 MG in SODIUM CHLORIDE 0.9% 100 ML IV SCH ×5 (00:45→21:32)
[2021-07-14] MEDS: KETOROLAC 10 MG TABLET PO SCH ×2 (01:40→05:02)
[2021-07-14] MEDS: MYCOPHENOLATE MOFETIL 250 MG CAPSULE PO SCH ×3 (06:07→22:44)
[2021-07-14] MEDS: carvediloL 25 MG TABLET PO SCH ×3 (06:08→22:44)
[2021-07-14] MEDS: ATORVASTATIN 20 MG TABLET PO SCH ×2 (06:08→22:44)
[2021-07-14] MEDS: TACROLIMUS 4 MG PO SCH ×2 (06:09→22:44)
[2021-07-14 08:51] LABS: Basophils % 0.1 % (0.0-0.8); Hematocrit 30.5 VOL% (42.0-52.0); Hemoglobin 9.6 GM/DL (14.0-18.0); Immature Granulocytes Absolute 0.13 #; Lymphocytes # 0.7 10*3/uL (1.4-4.0); Lymphocytes % 4.9 % (21.2-54.2); Mean Corpuscular HGB Conc 31.5 GM/DL (32-36); Mean Platelet Volume 9.1 FL (9.6-12.0); Monocytes % 2.2 % (1.7-12.7); NRBC # 0.02 10*3/uL; Neutrophils % 91.8 % (38.7-73.9); Platelet Count 195 T/CUMM (130-400); Red Blood Count 3.35 MC/CUMM (3.8-5.5); Red Cell Distribution Width 14.1 % (9.3-17.3); White Blood Count 13.4 T/CUMM (4-12)
[2021-07-14] MEDS ORDERED: INSULIN GLARGINE 100 UNIT/ML SUBCUT SCH (09:00)
[2021-07-14 09:08] LABS: Calcium 9.7 MG/DL (8.5-10.1); Osmolality,Calculated 305.7 MOS/KG (273-304)
[2021-07-14 09:12] LABS: Lymphocytes 4 % (20-55); Segmented Neutrophils 94 % (50-85); Total Cells Counted 100
[2021-07-14 09:13] LABS: Hypochromia 1+; Microcytosis 1+; Platelet Estimate Adequate
[2021-07-14] MEDS: FUROSEMIDE 40 MG TABLET PO SCH (09:26)
[2021-07-14] MEDS: ASPIRIN CHEW 81 MG TABLET PO SCH (09:26)
[2021-07-14] MEDS: FAMOTIDINE 20 MG TABLET PO SCH (09:26)
[2021-07-14] MEDS: allopurinoL 300 MG TABLET PO SCH (09:27)
[2021-07-14] MEDS: predniSONE 5 MG TABLET PO SCH (09:27)
[2021-07-14] MEDS: PANTOPRAZOLE 40 MG TABLET PO SCH (09:27)
[2021-07-14] MEDS: CHOLECALCIFEROL 1,000 UNIT TABLET PO SCH (09:27)
[2021-07-14 09:28] LABS: Potassium 6.1 MMOL/L (3.5-5.1)
[2021-07-14] MEDS: INSULIN LISPRO 100 UNIT/ML SUBCUT SCH ×5 (09:40→21:42)
[2021-07-14] MEDS: TACROLIMUS 5 MG PO SCH (09:40)
[2021-07-14] MEDS ORDERED: SODIUM POLYSTYRENE SULFATE 15 GM/60 ML BOTTLE PO ONE (10:30)
[2021-07-14] MEDS ORDERED: ZIPRASIDONE 20 MG/1 ML VIAL IM PRN (17:08)
[2021-07-14] MEDS: HYDROmorphone PCA 30 MG/30 ML SYRINGE IV SCH (21:21)
[2021-07-14] MEDS: INSULIN GLARGINE 100 UNIT/ML SUBCUT SCH (21:42)
[2021-07-15] MEDS: ALBUTEROL/IPRATROPIUM 3 ML NEB RESP TX SCH ×4 (01:20→19:45)
[2021-07-15 07:12] LABS: Calcium 8.7 MG/DL (8.5-10.1); Potassium 5.9 MMOL/L (3.5-5.1)
[2021-07-15 07:42] LABS: Basophils % 0.1 % (0.0-0.8); Eosinophils % 0.1 % (0.00-10.9); Hematocrit 28.4 VOL% (42.0-52.0); Hemoglobin 9.2 GM/DL (14.0-18.0); Immature Granulocytes % 0.7 %; Immature Granulocytes Absolute 0.09 #; Lymphocytes # 1.6 10*3/uL (1.4-4.0); Lymphocytes % 12.8 % (21.2-54.2); Mean Corpuscular HGB Conc 32.4 GM/DL (32-36); Mean Corpuscular Volume 87.9 FL (87-102); Mean Platelet Volume 9.1 FL (9.6-12.0); Monocytes % 6.6 % (1.7-12.7); NRBC # 0.04 10*3/uL; Neutrophils % 79.7 % (38.7-73.9); Platelet Count 209 T/CUMM (130-400); Red Blood Count 3.23 MC/CUMM (3.8-5.5); White Blood Count 12.4 T/CUMM (4-12)
[2021-07-15] MEDS ORDERED: SODIUM BICARBONATE 50 MEQ/50 ML VIAL IV ONE (08:03)
[2021-07-15] MEDS: SODIUM POLYSTYRENE SULFATE 15 GM/60 ML BOTTLE PO ONE ×2 (09:44→11:20)
[2021-07-15] MEDS: PANTOPRAZOLE 40 MG TABLET PO SCH ×2 (09:45→11:21)
[2021-07-15] MEDS: INSULIN GLARGINE 100 UNIT/ML SUBCUT SCH ×2 (09:45→20:51)
[2021-07-15] MEDS: predniSONE 5 MG TABLET PO SCH ×2 (09:45→11:21)
[2021-07-15] MEDS: SODIUM ZIRCONIUM CYCLOSILICATE 10 GM PACK PO SCH ×4 (09:45→20:36)
[2021-07-15] MEDS: INSULIN LISPRO 100 UNIT/ML SUBCUT SCH ×6 (09:45→20:50)
[2021-07-15] MEDS: CHOLECALCIFEROL 1,000 UNIT TABLET PO SCH ×2 (09:45→11:22)
[2021-07-15] MEDS: FAMOTIDINE 20 MG TABLET PO SCH ×2 (09:45→11:21)
[2021-07-15] MEDS: ASPIRIN CHEW 81 MG TABLET PO SCH ×2 (09:45→11:20)
[2021-07-15] MEDS: MYCOPHENOLATE MOFETIL 250 MG CAPSULE PO SCH ×3 (09:45→20:35)
[2021-07-15] MEDS: carvediloL 25 MG TABLET PO SCH ×2 (09:47→20:35)
[2021-07-15] MEDS: SODIUM BICARB INJ 100 MEQ in SODIUM CHLORIDE 0.45% 1,000 ML IV SCH (09:48)
[2021-07-15] MEDS: allopurinoL 300 MG TABLET PO SCH ×2 (09:51→11:22)
[2021-07-15] MEDS: TACROLIMUS 5 MG PO SCH ×2 (10:01→11:22)
[2021-07-15] MEDS ORDERED: INSULIN REGULAR 10 UNIT, CALCIUM GLUCONATE 1,000 MG in DEXTROSE 10% 250 ML IV ONE (11:00)
[2021-07-15] MEDS: GENTAMICIN INJ 80 MG/50 ML PREMIX IV SCH (12:41)
[2021-07-15] MEDS: AMPICILLIN INJ 2,000 MG in SODIUM CHLORIDE 0.9% 100 ML IV SCH ×2 (13:00→21:05)
[2021-07-15] MEDS: HYDROmorphone PCA 30 MG/30 ML SYRINGE IV SCH (13:05)
[2021-07-15 14:05] LABS: Calcium 9.3 MG/DL (8.5-10.1); Osmolality,Calculated 307.7 MOS/KG (273-304); Potassium 5.1 MMOL/L (3.5-5.1)
[2021-07-15 17:31] LABS: Hepatitis B Core IgM Quant 0.17 Index; Hepatitis B Surface Ag Quant 0.14 Index; Hepatitis B Surface Ag Result Non-Reactive (NonReactive); Hepatitis C Virus Ab Result Non-Reactive (NonReactive)
[2021-07-15] MEDS: ATORVASTATIN 20 MG TABLET PO SCH (20:35)
[2021-07-15] MEDS: TACROLIMUS 4 MG PO SCH (20:36)
[2021-07-16] MEDS: ALBUTEROL/IPRATROPIUM 3 ML NEB RESP TX SCH ×4 (02:15→19:18)
[2021-07-16] MEDS: AMPICILLIN INJ 2,000 MG in SODIUM CHLORIDE 0.9% 100 ML IV SCH ×3 (04:37→21:44)
[2021-07-16 06:13] LABS: Basophils % 0.2 % (0.0-0.8); Eosinophils # 0.2 10*3/uL (0.0-0.87); Eosinophils % 1.5 % (0.00-10.9); Hematocrit 28.4 VOL% (42.0-52.0); Hemoglobin 9.2 GM/DL (14.0-18.0); Immature Granulocytes % 1.2 %; Immature Granulocytes Absolute 0.13 #; Lymphocytes # 1.5 10*3/uL (1.4-4.0); Lymphocytes % 14.7 % (21.2-54.2); Mean Corpuscular HGB Conc 32.4 GM/DL (32-36); Mean Corpuscular Volume 88.8 FL (87-102); Mean Platelet Volume 9.5 FL (9.6-12.0); Monocytes % 9.7 % (1.7-12.7); NRBC # 0.02 10*3/uL; Neutrophils % 72.7 % (38.7-73.9); Platelet Count 230 T/CUMM (130-400); Red Cell Distribution Width 13.9 % (9.3-17.3); White Blood Count 10.5 T/CUMM (4-12)
[2021-07-16 08:11] LABS: Arterial Base Excess iSTAT 5 MMOL/L (-2.5-2.5); Arterial O2 Saturation iSTAT 62 % (95-100); Arterial PCO2 iSTAT 40 MM HG (35-48); Arterial PO2 iSTAT 30 MM HG (80-95); Arterial Total CO2 iSTAT 30 MMO/L (23-27); Arterial pH iSTAT 7.469 (7.35-7.45)
[2021-07-16 08:18] LABS: Osmolality,Calculated 297.4 MOS/KG (273-304); Potassium 4.4 MMOL/L (3.5-5.1)
[2021-07-16] MEDS: SODIUM BICARB INJ 100 MEQ in SODIUM CHLORIDE 0.45% 1,000 ML IV SCH (08:28)
[2021-07-16] MEDS ORDERED: LACTULOSE 20 GM/30 ML UDCUP PO ONE (10:00)
[2021-07-16] MEDS: INSULIN LISPRO 100 UNIT/ML SUBCUT SCH ×6 (11:18→21:45)
[2021-07-16] MEDS: INSULIN GLARGINE 100 UNIT/ML SUBCUT SCH ×2 (12:12→21:45)
[2021-07-16] MEDS: HEPARIN 5,000 UNIT/1 ML VIAL SUBCUT SCH ×2 (12:13→21:50)
[2021-07-16] MEDS: ASPIRIN CHEW 81 MG TABLET PO SCH (13:07)
[2021-07-16] MEDS: allopurinoL 300 MG TABLET PO SCH (13:08)
[2021-07-16] MEDS: predniSONE 5 MG TABLET PO SCH (13:08)
[2021-07-16] MEDS: carvediloL 25 MG TABLET PO SCH ×2 (13:08→21:45)
[2021-07-16] MEDS: CHOLECALCIFEROL 1,000 UNIT TABLET PO SCH (13:08)
[2021-07-16] MEDS: FAMOTIDINE 20 MG TABLET PO SCH (13:08)
[2021-07-16] MEDS: MYCOPHENOLATE MOFETIL 250 MG CAPSULE PO SCH ×2 (13:08→21:45)
[2021-07-16] MEDS: PANTOPRAZOLE 40 MG TABLET PO SCH (13:08)
[2021-07-16] MEDS: POLYETHYLENE GLYCOL POWDER 17 GM PACK PO SCH (13:09)
[2021-07-16] MEDS: LACTULOSE 20 GM/30 ML UDCUP PO SCH ×4 (13:09→21:49)
[2021-07-16] MEDS: TACROLIMUS 5 MG PO SCH (13:21)
[2021-07-16] MEDS: SODIUM ZIRCONIUM CYCLOSILICATE 10 GM PACK PO SCH ×3 (13:27→21:49)
[2021-07-16] MEDS: GENTAMICIN INJ 80 MG/50 ML PREMIX IV SCH (13:42)
[2021-07-16] MEDS: HYDROmorphone PCA 30 MG/30 ML SYRINGE IV SCH (15:08)
[2021-07-16] MEDS: TACROLIMUS 4 MG PO SCH (21:49)
[2021-07-16] MEDS: ATORVASTATIN 20 MG TABLET PO SCH (21:49)
[2021-07-17] MEDS: ALBUTEROL/IPRATROPIUM 3 ML NEB RESP TX SCH ×4 (01:07→19:59)
[2021-07-17] MEDS: LACTULOSE 20 GM/30 ML UDCUP PO SCH ×6 (02:27→22:24)
[2021-07-17] MEDS: AMPICILLIN INJ 2,000 MG in SODIUM CHLORIDE 0.9% 100 ML IV SCH ×3 (04:47→21:00)
[2021-07-17 08:25] LABS: Basophils % 0.4 % (0.0-0.8); Eosinophils # 0.2 10*3/uL (0.0-0.87); Eosinophils % 2.1 % (0.00-10.9); Hematocrit 27.3 VOL% (42.0-52.0); Hemoglobin 8.8 GM/DL (14.0-18.0); Immature Granulocytes % 1.4 %; Immature Granulocytes Absolute 0.11 #; Lymphocytes # 1.1 10*3/uL (1.4-4.0); Lymphocytes % 13.8 % (21.2-54.2); Mean Corpuscular HGB Conc 32.2 GM/DL (32-36); Mean Corpuscular Volume 88.6 FL (87-102); Mean Platelet Volume 9.6 FL (9.6-12.0); Monocytes % 9.4 % (1.7-12.7); Neutrophils % 72.9 % (38.7-73.9); Platelet Count 192 T/CUMM (130-400); Red Blood Count 3.08 MC/CUMM (3.8-5.5); Red Cell Distribution Width 13.9 % (9.3-17.3); White Blood Count 8.1 T/CUMM (4-12)
[2021-07-17 08:36] LABS: Calcium 8.6 MG/DL (8.5-10.1); Osmolality,Calculated 291.3 MOS/KG (273-304); Potassium 4.1 MMOL/L (3.5-5.1)
[2021-07-17] MEDS: INSULIN GLARGINE 100 UNIT/ML SUBCUT SCH ×2 (09:58→22:25)
[2021-07-17] MEDS: HEPARIN 5,000 UNIT/1 ML VIAL SUBCUT SCH ×2 (09:58→22:44)
[2021-07-17] MEDS: INSULIN LISPRO 100 UNIT/ML SUBCUT SCH ×6 (09:58→22:46)
[2021-07-17] MEDS: carvediloL 25 MG TABLET PO SCH ×2 (09:59→22:28)
[2021-07-17] MEDS: MYCOPHENOLATE MOFETIL 250 MG CAPSULE PO SCH ×2 (09:59→22:24)
[2021-07-17] MEDS: FAMOTIDINE 20 MG TABLET PO SCH (09:59)
[2021-07-17] MEDS: predniSONE 5 MG TABLET PO SCH (09:59)
[2021-07-17] MEDS: CHOLECALCIFEROL 1,000 UNIT TABLET PO SCH (09:59)
[2021-07-17] MEDS: PANTOPRAZOLE 40 MG TABLET PO SCH (09:59)
[2021-07-17] MEDS: ASPIRIN CHEW 81 MG TABLET PO SCH (09:59)
[2021-07-17] MEDS: allopurinoL 300 MG TABLET PO SCH (10:00)
[2021-07-17] MEDS: POLYETHYLENE GLYCOL POWDER 17 GM PACK PO SCH (10:00)
[2021-07-17] MEDS: TACROLIMUS 5 MG PO SCH (10:42)
[2021-07-17] MEDS: GENTAMICIN INJ 80 MG/50 ML PREMIX IV SCH (12:31)
[2021-07-17] MEDS: HYDROmorphone PCA 30 MG/30 ML SYRINGE IV SCH (16:07)
[2021-07-17] MEDS: TACROLIMUS 4 MG PO SCH (22:24)
[2021-07-17] MEDS: ATORVASTATIN 20 MG TABLET PO SCH (22:24)
[2021-07-17] MEDS: DOCUSATE SODIUM 100 MG CAPSULE PO SCH (22:24)
[2021-07-18] MEDS: ALBUTEROL/IPRATROPIUM 3 ML NEB RESP TX SCH ×4 (01:42→19:44)
[2021-07-18 04:58] LABS: Basophils % 0.4 % (0.0-0.8); Eosinophils # 0.1 10*3/uL (0.0-0.87); Eosinophils % 1.7 % (0.00-10.9); Hematocrit 27.6 VOL% (42.0-52.0); Hemoglobin 8.6 GM/DL (14.0-18.0); Immature Granulocytes % 1.2 %; Lymphocytes # 1.3 10*3/uL (1.4-4.0); Lymphocytes % 15.2 % (21.2-54.2); Mean Corpuscular HGB Conc 31.2 GM/DL (32-36); Mean Platelet Volume 9.1 FL (9.6-12.0); Monocytes % 9.9 % (1.7-12.7); Neutrophils % 71.6 % (38.7-73.9); Platelet Count 185 T/CUMM (130-400); White Blood Count 8.3 T/CUMM (4-12)
[2021-07-18] MEDS: AMPICILLIN INJ 2,000 MG in SODIUM CHLORIDE 0.9% 100 ML IV SCH ×3 (05:00→20:55)
[2021-07-18 05:18] LABS: Calcium 9.1 MG/DL (8.5-10.1); Osmolality,Calculated 291.3 MOS/KG (273-304); Potassium 3.9 MMOL/L (3.5-5.1)
[2021-07-18] MEDS: LACTULOSE 20 GM/30 ML UDCUP PO SCH ×6 (05:36→22:13)
[2021-07-18] MEDS: INSULIN LISPRO 100 UNIT/ML SUBCUT SCH ×6 (07:48→20:55)
[2021-07-18] MEDS: PANTOPRAZOLE 40 MG TABLET PO SCH (10:46)
[2021-07-18] MEDS: FAMOTIDINE 20 MG TABLET PO SCH (10:46)
[2021-07-18] MEDS: carvediloL 25 MG TABLET PO SCH ×2 (10:46→20:55)
[2021-07-18] MEDS: DOCUSATE SODIUM 100 MG CAPSULE PO SCH ×2 (10:46→20:54)
[2021-07-18] MEDS: allopurinoL 300 MG TABLET PO SCH (10:46)
[2021-07-18] MEDS: MYCOPHENOLATE MOFETIL 250 MG CAPSULE PO SCH ×2 (10:46→20:54)
[2021-07-18] MEDS: ASPIRIN CHEW 81 MG TABLET PO SCH (10:46)
[2021-07-18] MEDS: predniSONE 5 MG TABLET PO SCH (10:46)
[2021-07-18] MEDS: HEPARIN 5,000 UNIT/1 ML VIAL SUBCUT SCH ×2 (10:52→23:04)
[2021-07-18] MEDS: POLYETHYLENE GLYCOL POWDER 17 GM PACK PO SCH (10:53)
[2021-07-18] MEDS: INSULIN GLARGINE 100 UNIT/ML SUBCUT SCH ×2 (10:53→20:56)
[2021-07-18] MEDS: CHOLECALCIFEROL 1,000 UNIT TABLET PO SCH (10:55)
[2021-07-18] MEDS: TACROLIMUS 5 MG PO SCH (11:21)
[2021-07-18] MEDS: amLODIPine 5 MG TABLET PO SCH (13:49)
[2021-07-18] MEDS: HYDROmorphone PCA 30 MG/30 ML SYRINGE IV SCH (15:29)
[2021-07-18] MEDS: ATORVASTATIN 20 MG TABLET PO SCH (20:55)
[2021-07-18] MEDS: TACROLIMUS 4 MG PO SCH (20:57)
[2021-07-19] MEDS: LACTULOSE 20 GM/30 ML UDCUP PO SCH ×3 (02:05→11:29)
[2021-07-19] MEDS ORDERED: GENTAMICIN INJ 80 MG/50 ML PREMIX IV SCH (04:00)
[2021-07-19] MEDS: AMPICILLIN INJ 2,000 MG in SODIUM CHLORIDE 0.9% 100 ML IV SCH ×2 (04:42→14:09)
[2021-07-19 05:44] LABS: Calcium 8.8 MG/DL (8.5-10.1); Potassium 4.1 MMOL/L (3.5-5.1)
[2021-07-19] MEDS: ALBUTEROL/IPRATROPIUM 3 ML NEB RESP TX SCH ×2 (07:07→13:21)
[2021-07-19] MEDS: INSULIN LISPRO 100 UNIT/ML SUBCUT SCH ×3 (08:26→12:22)
[2021-07-19] MEDS: FAMOTIDINE 20 MG TABLET PO SCH (09:44)
[2021-07-19] MEDS: allopurinoL 300 MG TABLET PO SCH (09:44)
[2021-07-19] MEDS: PANTOPRAZOLE 40 MG TABLET PO SCH (09:44)
[2021-07-19] MEDS: DOCUSATE SODIUM 100 MG CAPSULE PO SCH (09:44)
[2021-07-19] MEDS: predniSONE 5 MG TABLET PO SCH (09:44)
[2021-07-19] MEDS: ASPIRIN CHEW 81 MG TABLET PO SCH (09:44)
[2021-07-19] MEDS: amLODIPine 5 MG TABLET PO SCH (09:44)
[2021-07-19] MEDS: CHOLECALCIFEROL 1,000 UNIT TABLET PO SCH (09:44)
[2021-07-19] MEDS: HEPARIN 5,000 UNIT/1 ML VIAL SUBCUT SCH (09:45)
[2021-07-19] MEDS: INSULIN GLARGINE 100 UNIT/ML SUBCUT SCH (09:45)
[2021-07-19] MEDS: TACROLIMUS 5 MG PO SCH (09:47)
[2021-07-19] MEDS: MYCOPHENOLATE MOFETIL 250 MG CAPSULE PO SCH (09:47)
[2021-07-19] MEDS: POLYETHYLENE GLYCOL POWDER 17 GM PACK PO SCH (09:48)
[2021-07-19] MEDS: carvediloL 25 MG TABLET PO SCH (09:52)
[2021-07-19 19:31] VITALS: BP 152/84
[2021-07-26] MEDS ORDERED: GENTAMICIN INJ 80 MG/50 ML PREMIX IV SCH (09:00)
== END 2021-07-19 18:59 | DRG 166 ==
LOC: EDUNIT# → EDBD → N.ED 21:54 → SUATTDRO 07-05 03:09 → N.EDINP 07-05 03:09 → N.TELEN 07-05 16:06
PROVIDERS: ADMIT Hospitalist; ATTEND Internal Medicine

== ENCOUNTER 2022-01-05 15:02 | Inpatient (IN) ==
[2022-01-05] MEDS ORDERED: GLUCAGON 1 MG VIAL IM PRN (15:37)
[2022-01-05] MEDS ORDERED: ACETAMINOPHEN 325 MG TABLET PO PRN (15:38)
[2022-01-05] MEDS ORDERED: DEXTROSE 10% 250 ML BAG IV PRN (16:40)
[2022-01-05 17:26] LABS: Basophils # 0.1 10*3/uL (0.0-0.2); Basophils % 0.5 % (0.0-0.8); Eosinophils # 0.3 10*3/uL (0.0-0.87); Eosinophils % 2.9 % (0.00-10.9); Hematocrit 29.1 VOL% (42.0-52.0); Hemoglobin 9.4 GM/DL (14.0-18.0); Immature Granulocytes % 0.5 %; Immature Granulocytes Absolute 0.05 #; Lymphocytes % 28.2 % (21.2-54.2); Mean Corpuscular HGB Conc 32.3 GM/DL (32-36); Mean Corpuscular Volume 96.4 FL (87-102); Mean Platelet Volume 8.7 FL (9.6-12.0); Monocytes # 1.1 10*3/uL (0.11-0.8); Neutrophils % 57.9 % (38.7-73.9); Platelet Count 199 T/CUMM (130-400); Red Blood Count 3.02 MC/CUMM (3.8-5.5); Red Cell Distribution Width 15.8 % (9.3-17.3); White Blood Count 10.6 T/CUMM (4-12)
[2022-01-05 17:35] LABS: INR 1.1; PT Patient Result 11.6 SECS (10.1-12.1)
[2022-01-05 17:46] LABS: Albumin 2.2 G/DL (3.4-5.0); Bilirubin,Total 0.4 MG/DL (0.20-1.00); Calcium 9.4 MG/DL (8.5-10.1); Osmolality,Calculated 278.8 MOS/KG (273-304); Potassium 3.5 MMOL/L (3.5-5.1); Total Protein 8.1 G/DL (6.4-8.2)
[2022-01-05] MEDS: INSULIN LISPRO 100 UNIT/ML SUBCUT SCH ×2 (17:54→19:53)
[2022-01-05] MEDS ORDERED: INSULIN REGULAR 100 UNIT/ML SUBCUT SCH (18:00)
[2022-01-05] MEDS: PIPERACILLIN/TAZOBACTAM 3,375 MG in SODIUM CHLORIDE 0.9% 100 ML IV SCH (18:09)
[2022-01-05] MEDS: ATORVASTATIN 20 MG TABLET PO SCH (22:41)
[2022-01-05] MEDS: carvediloL 12.5 MG TABLET PO SCH (22:41)
[2022-01-06] MEDS: PIPERACILLIN/TAZOBACTAM 3,375 MG in SODIUM CHLORIDE 0.9% 100 ML IV SCH ×2 (06:05→21:40)
[2022-01-06] MEDS: INSULIN LISPRO 100 UNIT/ML SUBCUT SCH ×4 (07:49→21:42)
[2022-01-06] MEDS ORDERED: BUPIVACAINE 0.5% 50 ML VIAL ONE (08:27)
[2022-01-06] MEDS ORDERED: fentaNYL 100 MCG/2 ML VIAL ONE (08:43)
[2022-01-06] MEDS ORDERED: propofoL 200 MG/20 ML VIAL IV ONE (08:43)
[2022-01-06] MEDS ORDERED: MIDAZOLAM 2 MG/2 ML VIAL ONE (08:43)
[2022-01-06] MEDS ORDERED: LIDOCAINE 2% 5 ML VIAL ONE (08:43)
[2022-01-06] MEDS ORDERED: ONDANSETRON 4 MG/2 ML VIAL ONE (08:43)
[2022-01-06] MEDS ORDERED: PHENYLEPHRINE 1 MG/10 ML SYRINGE IV ONE (08:54)
[2022-01-06] MEDS ORDERED: SODIUM CHLORIDE 0.9% 250 ML IV SCH (09:00)
[2022-01-06] MEDS ORDERED: ePHEDrine 50 MG/ML VIAL ONE (09:10)
[2022-01-06] MEDS: allopurinoL 100 MG TABLET PO SCH (10:31)
[2022-01-06] MEDS: ASPIRIN CHEW 81 MG TABLET PO SCH (10:31)
[2022-01-06] MEDS: CHOLECALCIFEROL 1,000 UNIT TABLET PO SCH (10:31)
[2022-01-06] MEDS: carvediloL 12.5 MG TABLET PO SCH ×2 (10:31→21:42)
[2022-01-06] MEDS: ATORVASTATIN 20 MG TABLET PO SCH (21:42)
[2022-01-07] MEDS: INSULIN LISPRO 100 UNIT/ML SUBCUT SCH ×4 (08:44→20:52)
[2022-01-07] MEDS: allopurinoL 100 MG TABLET PO SCH (08:46)
[2022-01-07] MEDS: carvediloL 12.5 MG TABLET PO SCH ×2 (08:46→20:52)
[2022-01-07] MEDS: PIPERACILLIN/TAZOBACTAM 3,375 MG in SODIUM CHLORIDE 0.9% 100 ML IV SCH ×2 (08:46→20:42)
[2022-01-07] MEDS: ASPIRIN CHEW 81 MG TABLET PO SCH (08:46)
[2022-01-07] MEDS: CHOLECALCIFEROL 1,000 UNIT TABLET PO SCH (08:46)
[2022-01-07] MEDS: ATORVASTATIN 20 MG TABLET PO SCH (20:42)
[2022-01-07] MEDS: MENTHOL/ZINC OXIDE OINT 71 GM JAR TOP SCH (20:48)
[2022-01-08] MEDS: INSULIN LISPRO 100 UNIT/ML SUBCUT SCH ×4 (07:59→20:56)
[2022-01-08] MEDS: ASPIRIN CHEW 81 MG TABLET PO SCH (08:00)
[2022-01-08] MEDS: MENTHOL/ZINC OXIDE OINT 71 GM JAR TOP SCH ×2 (08:01→20:56)
[2022-01-08] MEDS: PIPERACILLIN/TAZOBACTAM 3,375 MG in SODIUM CHLORIDE 0.9% 100 ML IV SCH ×2 (08:01→20:57)
[2022-01-08] MEDS: carvediloL 12.5 MG TABLET PO SCH ×3 (08:01→23:26)
[2022-01-08] MEDS: CHOLECALCIFEROL 1,000 UNIT TABLET PO SCH (08:01)
[2022-01-08] MEDS: allopurinoL 100 MG TABLET PO SCH (08:02)
[2022-01-08] MEDS: ATORVASTATIN 20 MG TABLET PO SCH (20:56)
[2022-01-09] MEDS: carvediloL 12.5 MG TABLET PO SCH ×2 (08:42→22:26)
[2022-01-09] MEDS: CHOLECALCIFEROL 1,000 UNIT TABLET PO SCH (09:42)
[2022-01-09] MEDS: allopurinoL 100 MG TABLET PO SCH (09:42)
[2022-01-09] MEDS: ASPIRIN CHEW 81 MG TABLET PO SCH (09:42)
[2022-01-09] MEDS: INSULIN LISPRO 100 UNIT/ML SUBCUT SCH ×4 (09:42→22:37)
[2022-01-09] MEDS: PIPERACILLIN/TAZOBACTAM 3,375 MG in SODIUM CHLORIDE 0.9% 100 ML IV SCH ×2 (09:43→22:26)
[2022-01-09] MEDS: MENTHOL/ZINC OXIDE OINT 71 GM JAR TOP SCH ×2 (09:43→22:27)
[2022-01-09] MEDS: ATORVASTATIN 20 MG TABLET PO SCH (22:26)
[2022-01-10] MEDS: INSULIN LISPRO 100 UNIT/ML SUBCUT SCH ×4 (09:14→21:25)
[2022-01-10] MEDS: ASPIRIN CHEW 81 MG TABLET PO SCH (09:16)
[2022-01-10] MEDS: carvediloL 12.5 MG TABLET PO SCH ×2 (09:17→21:26)
[2022-01-10] MEDS: allopurinoL 100 MG TABLET PO SCH (09:17)
[2022-01-10] MEDS: CHOLECALCIFEROL 1,000 UNIT TABLET PO SCH (09:18)
[2022-01-10] MEDS: MENTHOL/ZINC OXIDE OINT 71 GM JAR TOP SCH ×2 (11:55→21:26)
[2022-01-10] MEDS: PIPERACILLIN/TAZOBACTAM 3,375 MG in SODIUM CHLORIDE 0.9% 100 ML IV SCH (11:59)
[2022-01-10] MEDS: DOCUSATE SODIUM 100 MG CAPSULE PO SCH ×2 (12:18→21:26)
[2022-01-10] MEDS ORDERED: BISACODYL 10 MG SUPP RECTAL ONE (13:00)
[2022-01-10] MEDS: AMOXICILLIN/CLAV 875 MG TABLET PO SCH (16:50)
[2022-01-10] MEDS ORDERED: SULFAMETHOX/TRIMETHOPRIM 800-160 MG TABLET PO SCH (21:00)
[2022-01-10] MEDS: ATORVASTATIN 20 MG TABLET PO SCH (21:26)
[2022-01-11] MEDS ORDERED: POLYETHYLENE GLYCOL POWDER 17 GM PACK PO SCH (09:00)
[2022-01-11] MEDS: INSULIN LISPRO 100 UNIT/ML SUBCUT SCH ×3 (09:04→16:28)
[2022-01-11] MEDS: CHOLECALCIFEROL 1,000 UNIT TABLET PO SCH (09:08)
[2022-01-11] MEDS: ASPIRIN CHEW 81 MG TABLET PO SCH (09:08)
[2022-01-11] MEDS: carvediloL 12.5 MG TABLET PO SCH (09:08)
[2022-01-11] MEDS: allopurinoL 100 MG TABLET PO SCH (09:08)
[2022-01-11] MEDS: DOCUSATE SODIUM 100 MG CAPSULE PO SCH (09:08)
[2022-01-11] MEDS: MENTHOL/ZINC OXIDE OINT 71 GM JAR TOP SCH (09:09)
[2022-01-11 16:20] VITALS: BP 101/43
[2022-01-11] MEDS: AMOXICILLIN/CLAV 875 MG TABLET PO SCH (16:28)
== END 2022-01-11 16:40 | DRG 239 ==
LOC: N.5E 16:06
PROVIDERS: ADMIT Surgery; ATTEND Surgery

== ENCOUNTER 2022-02-23 11:30 | Inpatient (IN) ==
[2022-02-23 12:33] LABS: Basophils % 0.3 % (0.0-0.8); Eosinophils % 0.3 % (0.00-10.9); Hematocrit 24.6 VOL% (42.0-52.0); Hemoglobin 7.8 GM/DL (14.0-18.0); Immature Granulocytes % 0.6 %; Immature Granulocytes Absolute 0.04 #; Lymphocytes # 1.6 10*3/uL (1.4-4.0); Lymphocytes % 23.8 % (21.2-54.2); Mean Corpuscular HGB Conc 31.7 GM/DL (32-36); Mean Corpuscular Volume 93.5 FL (87-102); Monocytes # 0.8 10*3/uL (0.11-0.8); Monocytes % 12.2 % (1.7-12.7); Neutrophils % 62.8 % (38.7-73.9); Platelet Count 125 T/CUMM (130-400); Red Blood Count 2.63 MC/CUMM (3.8-5.5); Red Cell Distribution Width 17.6 % (9.3-17.3); White Blood Count 6.5 T/CUMM (4-12)
[2022-02-23 12:46] LABS: Albumin 2.1 G/DL (3.4-5.0); Bilirubin,Total 0.5 MG/DL (0.20-1.00); Calcium 8.3 MG/DL (8.5-10.1); Osmolality,Calculated 290.1 MOS/KG (273-304); Potassium 3.8 MMOL/L (3.5-5.1); Total Protein 7.4 G/DL (6.4-8.2)
[2022-02-23] MEDS ORDERED: ACETAMINOPHEN 500 MG TABLET PO STA (13:59)
[2022-02-23] MEDS ORDERED: VANCOMYCIN INJ 750 MG in SODIUM CHLORIDE 0.9% 250 ML IV STA (14:25)
[2022-02-23] MEDS ORDERED: GENTAMICIN INJ 100 MG/100 ML PREMIX IV STA (14:27)
[2022-02-23] MEDS ORDERED: ONDANSETRON 4 MG/2 ML VIAL IV PRN (14:46)
[2022-02-23] MEDS ORDERED: hydrALAZINE 20 MG/1 ML VIAL IV PRN (14:46)
[2022-02-23] MEDS ORDERED: GLUCAGON 1 MG VIAL IM PRN (14:46)
[2022-02-23] MEDS ORDERED: DEXTROSE 50% 25 GM/50 ML SYRINGE IV PRN (15:43)
[2022-02-23] MEDS ORDERED: GENTAMICIN INJ 100 MG/100 ML PREMIX IV PRN (16:54)
[2022-02-23] MEDS ORDERED: VANCOMYCIN INJ 750 MG in SODIUM CHLORIDE 0.9% 250 ML IV PRN (16:54)
[2022-02-23] MEDS ORDERED: GENTAMICIN INJ 200 MG in SODIUM CHLORIDE 0.9% 100 ML IV ONE (17:30)
[2022-02-23] MEDS ORDERED: VANCOMYCIN INJ 2,000 MG in SODIUM CHLORIDE 0.9% 500 ML IV ONE (18:00)
[2022-02-23] MEDS: INSULIN LISPRO 100 UNIT/ML SUBCUT SCH ×2 (19:02→20:57)
[2022-02-23] MEDS: VANCOMYCIN 125 MG CAPSULE PO SCH (19:09)
[2022-02-23] MEDS: HEPARIN 5,000 UNIT/1 ML VIAL SUBCUT SCH (20:57)
[2022-02-23] MEDS: ACETAMINOPHEN 325 MG TABLET PO PRN (20:58)
[2022-02-23] MEDS ORDERED: CHOLESTYRAMINE 4 GM PACK PO SCH (21:00)
[2022-02-24] MEDS: VANCOMYCIN 125 MG CAPSULE PO SCH ×4 (01:10→21:49)
[2022-02-24 05:45] LABS: Basophils % 0.4 % (0.0-0.8); Eosinophils # 0.1 10*3/uL (0.0-0.87); Eosinophils % 1.3 % (0.00-10.9); Hematocrit 25.5 VOL% (42.0-52.0); Hemoglobin 8.1 GM/DL (14.0-18.0); Immature Granulocytes % 0.4 %; Immature Granulocytes Absolute 0.02 #; Lymphocytes # 1.6 10*3/uL (1.4-4.0); Lymphocytes % 28.6 % (21.2-54.2); Mean Corpuscular HGB Conc 31.8 GM/DL (32-36); Mean Corpuscular Volume 93.8 FL (87-102); Mean Platelet Volume 9.4 FL (9.6-12.0); Monocytes # 0.7 10*3/uL (0.11-0.8); Monocytes % 11.8 % (1.7-12.7); Neutrophils % 57.5 % (38.7-73.9); Platelet Count 102 T/CUMM (130-400); Red Blood Count 2.72 MC/CUMM (3.8-5.5); Red Cell Distribution Width 17.5 % (9.3-17.3); White Blood Count 5.6 T/CUMM (4-12)
[2022-02-24 06:15] LABS: Calcium 8.5 MG/DL (8.5-10.1); Osmolality,Calculated 283.4 MOS/KG (273-304); Potassium 3.7 MMOL/L (3.5-5.1)
[2022-02-24 06:43] LABS: % Iron Saturation 21.6 % (18-50)
[2022-02-24] MEDS: INSULIN LISPRO 100 UNIT/ML SUBCUT SCH ×4 (09:10→21:49)
[2022-02-24] MEDS: PANTOPRAZOLE 40 MG TABLET PO SCH (09:59)
[2022-02-24] MEDS: HEPARIN 5,000 UNIT/1 ML VIAL SUBCUT SCH ×2 (09:59→21:48)
[2022-02-24] MEDS: CHOLESTYRAMINE 4 GM PACK PO SCH ×2 (09:59→21:49)
[2022-02-24] MEDS: ACETAMINOPHEN 325 MG TABLET PO PRN (13:05)
[2022-02-24] MEDS: ZINC OXIDE PASTE 113 GM TUBE TOP SCH (21:46)
[2022-02-25] MEDS: VANCOMYCIN 125 MG CAPSULE PO SCH ×4 (03:43→20:59)
[2022-02-25] MEDS ORDERED: LIDOCAINE 2% 5 ML VIAL ONE (08:46)
[2022-02-25] MEDS ORDERED: ETOMIDATE 40 MG/20 ML VIAL IV ONE (08:46)
[2022-02-25] MEDS ORDERED: PHENYLEPHRINE 1 MG/10 ML SYRINGE IV ONE (08:46)
[2022-02-25] MEDS ORDERED: MIDAZOLAM 2 MG/2 ML VIAL ONE (08:46)
[2022-02-25] MEDS ORDERED: SEVOFLURANE 1 UNIT/15 MINUTE INH ONE (08:46)
[2022-02-25] MEDS ORDERED: propofoL 200 MG/20 ML VIAL IV ONE (08:46)
[2022-02-25] MEDS ORDERED: fentaNYL 100 MCG/2 ML VIAL ONE (08:47)
[2022-02-25] MEDS ORDERED: LACTATED RINGERS 1,000 ML IV SCH (09:00)
[2022-02-25] MEDS ORDERED: ceFAZolin 1,000 MG VIAL ONE (09:01)
[2022-02-25] MEDS ORDERED: ePHEDrine 50 MG/ML VIAL ONE (09:11)
[2022-02-25] MEDS ORDERED: EPINEPHrine 1 MG/10 ML SYRINGE ONE (09:57)
[2022-02-25] MEDS ORDERED: ALBUTEROL/IPRATROPIUM 3 ML NEB RESP TX ONE (10:00)
[2022-02-25] MEDS: SODIUM CHLORIDE 0.9% 250 ML IV SCH ×2 (10:06→13:04)
[2022-02-25] MEDS: PANTOPRAZOLE 40 MG TABLET PO SCH (11:28)
[2022-02-25] MEDS: INSULIN LISPRO 100 UNIT/ML SUBCUT SCH ×4 (11:28→21:01)
[2022-02-25] MEDS: ZINC OXIDE PASTE 113 GM TUBE TOP SCH ×2 (11:30→21:01)
[2022-02-25] MEDS: CHOLESTYRAMINE 4 GM PACK PO SCH ×2 (11:30→21:00)
[2022-02-25] MEDS: HEPARIN 5,000 UNIT/1 ML VIAL SUBCUT SCH ×2 (11:30→21:00)
[2022-02-25] MEDS ORDERED: GENTAMICIN INJ 100 MG/100 ML PREMIX IV ONE (17:00)
[2022-02-25] MEDS ORDERED: VANCOMYCIN INJ 750 MG in SODIUM CHLORIDE 0.9% 250 ML IV ONE (17:00)
[2022-02-26] MEDS: VANCOMYCIN 125 MG CAPSULE PO SCH ×4 (03:54→21:26)
[2022-02-26 05:30] LABS: Basophils % 0.3 % (0.0-0.8); Eosinophils % 0.6 % (0.00-10.9); Hematocrit 24.8 VOL% (42.0-52.0); Hemoglobin 7.9 GM/DL (14.0-18.0); Immature Granulocytes % 0.3 %; Immature Granulocytes Absolute 0.02 #; Lymphocytes % 29.4 % (21.2-54.2); Mean Corpuscular HGB Conc 31.9 GM/DL (32-36); Mean Corpuscular Volume 93.9 FL (87-102); Mean Platelet Volume 9.4 FL (9.6-12.0); Monocytes # 0.6 10*3/uL (0.11-0.8); Monocytes % 9.3 % (1.7-12.7); Neutrophils % 60.1 % (38.7-73.9); Platelet Count 105 T/CUMM (130-400); Red Blood Count 2.64 MC/CUMM (3.8-5.5); Red Cell Distribution Width 16.9 % (9.3-17.3); White Blood Count 6.8 T/CUMM (4-12)
[2022-02-26 05:41] LABS: Calcium 8.4 MG/DL (8.5-10.1); Osmolality,Calculated 285.5 MOS/KG (273-304); Potassium 3.7 MMOL/L (3.5-5.1)
[2022-02-26] MEDS: INSULIN LISPRO 100 UNIT/ML SUBCUT SCH ×4 (07:55→21:33)
[2022-02-26] MEDS: PANTOPRAZOLE 40 MG TABLET PO SCH (13:53)
[2022-02-26] MEDS: ZINC OXIDE PASTE 113 GM TUBE TOP SCH ×2 (13:53→21:25)
[2022-02-26] MEDS: HEPARIN 5,000 UNIT/1 ML VIAL SUBCUT SCH ×2 (13:53→23:02)
[2022-02-26] MEDS: CHOLESTYRAMINE 4 GM PACK PO SCH ×2 (15:08→21:26)
[2022-02-26] MEDS ORDERED: VANCOMYCIN INJ 750 MG in SODIUM CHLORIDE 0.9% 250 ML IV ONE (17:00)
[2022-02-27] MEDS: VANCOMYCIN 125 MG CAPSULE PO SCH ×4 (03:29→22:14)
[2022-02-27 05:56] LABS: Basophils % 0.2 % (0.0-0.8); Eosinophils # 0.1 10*3/uL (0.0-0.87); Eosinophils % 2.1 % (0.00-10.9); Hematocrit 25.1 VOL% (42.0-52.0); Hemoglobin 8.1 GM/DL (14.0-18.0); Immature Granulocytes % 0.3 %; Immature Granulocytes Absolute 0.02 #; Lymphocytes # 1.9 10*3/uL (1.4-4.0); Lymphocytes % 32.9 % (21.2-54.2); Mean Corpuscular HGB Conc 32.3 GM/DL (32-36); Mean Corpuscular Volume 92.6 FL (87-102); Mean Platelet Volume 9.5 FL (9.6-12.0); Monocytes # 0.7 10*3/uL (0.11-0.8); Monocytes % 11.4 % (1.7-12.7); Neutrophils % 53.1 % (38.7-73.9); Platelet Count 109 T/CUMM (130-400); Red Blood Count 2.71 MC/CUMM (3.8-5.5); Red Cell Distribution Width 16.8 % (9.3-17.3); White Blood Count 5.7 T/CUMM (4-12)
[2022-02-27 06:20] LABS: Calcium 8.4 MG/DL (8.5-10.1); Osmolality,Calculated 282.3 MOS/KG (273-304); Potassium 3.5 MMOL/L (3.5-5.1)
[2022-02-27] MEDS: INSULIN LISPRO 100 UNIT/ML SUBCUT SCH ×4 (08:08→22:16)
[2022-02-27] MEDS: ACETAMINOPHEN 325 MG TABLET PO PRN (09:15)
[2022-02-27] MEDS: PANTOPRAZOLE 40 MG TABLET PO SCH (09:15)
[2022-02-27] MEDS: ZINC OXIDE PASTE 113 GM TUBE TOP SCH ×2 (09:15→22:12)
[2022-02-27] MEDS: HEPARIN 5,000 UNIT/1 ML VIAL SUBCUT SCH ×2 (09:16→22:13)
[2022-02-27] MEDS: CHOLESTYRAMINE 4 GM PACK PO SCH ×2 (11:31→22:14)
[2022-02-28] MEDS: VANCOMYCIN 125 MG CAPSULE PO SCH ×4 (05:15→20:53)
[2022-02-28 07:48] LABS: Basophils % 0.3 % (0.0-0.8); Eosinophils # 0.3 10*3/uL (0.0-0.87); Eosinophils % 4.2 % (0.00-10.9); Hemoglobin 8.8 GM/DL (14.0-18.0); Immature Granulocytes % 0.3 %; Immature Granulocytes Absolute 0.02 #; Lymphocytes # 1.7 10*3/uL (1.4-4.0); Lymphocytes % 28.6 % (21.2-54.2); Mean Corpuscular HGB Conc 31.4 GM/DL (32-36); Mean Corpuscular Volume 92.4 FL (87-102); Mean Platelet Volume 8.7 FL (9.6-12.0); Monocytes # 0.5 10*3/uL (0.11-0.8); Monocytes % 9.1 % (1.7-12.7); Neutrophils % 57.5 % (38.7-73.9); Platelet Count 113 T/CUMM (130-400); Red Blood Count 3.03 MC/CUMM (3.8-5.5); Red Cell Distribution Width 16.5 % (9.3-17.3)
[2022-02-28] MEDS: INSULIN LISPRO 100 UNIT/ML SUBCUT SCH ×4 (07:59→20:56)
[2022-02-28 08:07] LABS: Calcium 8.3 MG/DL (8.5-10.1); Osmolality,Calculated 287.1 MOS/KG (273-304); Potassium 3.6 MMOL/L (3.5-5.1)
[2022-02-28] MEDS: PANTOPRAZOLE 40 MG TABLET PO SCH (08:08)
[2022-02-28] MEDS: HEPARIN 5,000 UNIT/1 ML VIAL SUBCUT SCH ×2 (08:08→20:57)
[2022-02-28] MEDS: ZINC OXIDE PASTE 113 GM TUBE TOP SCH ×2 (08:08→20:53)
[2022-02-28] MEDS: CHOLESTYRAMINE 4 GM PACK PO SCH ×2 (09:21→21:11)
[2022-02-28] MEDS ORDERED: VANCOMYCIN INJ 750 MG in SODIUM CHLORIDE 0.9% 250 ML IV PRN (09:49)
[2022-02-28] MEDS: BACILLUS COAGULANS CAPLET PO SCH ×2 (14:09→20:51)
[2022-02-28] MEDS ORDERED: VANCOMYCIN INJ 750 MG in SODIUM CHLORIDE 0.9% 250 ML IV ONE (17:00)
[2022-02-28] MEDS: DESITIN 4OZ/NYSTATIN 15 GRAM MIXTURE PASTE TOP SCH (20:52)
[2022-03-01] MEDS: VANCOMYCIN 125 MG CAPSULE PO SCH ×2 (05:02→11:06)
[2022-03-01 05:16] LABS: Basophils % 0.3 % (0.0-0.8); Eosinophils # 0.2 10*3/uL (0.0-0.87); Eosinophils % 2.4 % (0.00-10.9); Hematocrit 28.2 VOL% (42.0-52.0); Hemoglobin 8.8 GM/DL (14.0-18.0); Immature Granulocytes % 0.6 %; Immature Granulocytes Absolute 0.04 #; Lymphocytes # 1.7 10*3/uL (1.4-4.0); Lymphocytes % 27.6 % (21.2-54.2); Mean Corpuscular HGB Conc 31.2 GM/DL (32-36); Mean Corpuscular Volume 93.1 FL (87-102); Mean Platelet Volume 8.7 FL (9.6-12.0); Monocytes # 0.6 10*3/uL (0.11-0.8); Monocytes % 9.7 % (1.7-12.7); Neutrophils % 59.4 % (38.7-73.9); Platelet Count 124 T/CUMM (130-400); Red Blood Count 3.03 MC/CUMM (3.8-5.5); Red Cell Distribution Width 16.6 % (9.3-17.3); White Blood Count 6.3 T/CUMM (4-12)
[2022-03-01 05:37] LABS: Calcium 8.6 MG/DL (8.5-10.1); Osmolality,Calculated 280.3 MOS/KG (273-304); Potassium 3.1 MMOL/L (3.5-5.1)
[2022-03-01] MEDS ORDERED: POTASSIUM CHLORIDE 20 MEQ TABLET PO ONE (07:36)
[2022-03-01] MEDS: BACILLUS COAGULANS CAPLET PO SCH (11:06)
[2022-03-01] MEDS: PANTOPRAZOLE 40 MG TABLET PO SCH (11:06)
[2022-03-01] MEDS: HEPARIN 5,000 UNIT/1 ML VIAL SUBCUT SCH (11:07)
[2022-03-01] MEDS: INSULIN LISPRO 100 UNIT/ML SUBCUT SCH ×2 (11:35→12:30)
[2022-03-01] MEDS: DESITIN 4OZ/NYSTATIN 15 GRAM MIXTURE PASTE TOP SCH (11:37)
[2022-03-01] MEDS: ZINC OXIDE PASTE 113 GM TUBE TOP SCH (11:37)
[2022-03-01] MEDS: CHOLESTYRAMINE 4 GM PACK PO SCH (11:38)
[2022-03-01 12:08] VITALS: BP 127/52
== END 2022-03-01 13:56 | disposition home health service (06) | DRG 463 ==
LOC: N.ED 11:30 → N.EDINP 14:46 → SUATTDRO 14:46 → N.5E 14:50
PROVIDERS: ADMIT Emergency Medicine; ATTEND Internal Medicine

== ENCOUNTER 2022-03-22 06:58 | Inpatient (IN) ==
[~2022-03-22 06:58] MED LIST: VANCOMYCIN INJ 1,000 MG in SODIUM CHLORIDE 0.9% 250 ML IV ONE
[2022-03-22 08:14] LABS: Basophils # 0.1 10*3/uL (0.0-0.2); Basophils % 1.1 % (0.0-0.8); Eosinophils # 0.3 10*3/uL (0.0-0.87); Eosinophils % 3.1 % (0.00-10.9); Hemoglobin 10.2 GM/DL (14.0-18.0); Immature Granulocytes % 0.6 %; Immature Granulocytes Absolute 0.05 #; Lymphocytes # 2.1 10*3/uL (1.4-4.0); Lymphocytes % 25.8 % (21.2-54.2); Mean Corpuscular HGB Conc 30.9 GM/DL (32-36); Mean Corpuscular Volume 94.8 FL (87-102); Mean Platelet Volume 9.1 FL (9.6-12.0); Monocytes # 0.9 10*3/uL (0.11-0.8); Monocytes % 10.7 % (1.7-12.7); NRBC # 0.03 10*3/uL; Neutrophils % 58.7 % (38.7-73.9); Platelet Count 178 T/CUMM (130-400); Red Blood Count 3.48 MC/CUMM (3.8-5.5); Red Cell Distribution Width 17.2 % (9.3-17.3); White Blood Count 8.1 T/CUMM (4-12)
[2022-03-22] MEDS ORDERED: ETOMIDATE 40 MG/20 ML VIAL IV ONE (08:21)
[2022-03-22] MEDS ORDERED: propofoL 200 MG/20 ML VIAL IV ONE (08:21)
[2022-03-22] MEDS ORDERED: SEVOFLURANE 1 UNIT/15 MINUTE INH ONE ×5 (08:21→10:29)
[2022-03-22] MEDS ORDERED: LIDOCAINE 2% 5 ML VIAL ONE (08:21)
[2022-03-22] MEDS ORDERED: ONDANSETRON 4 MG/2 ML VIAL ONE (08:21)
[2022-03-22] MEDS ORDERED: DEXAMETHASONE 4 MG/1 ML VIAL ONE (08:21)
[2022-03-22] MEDS ORDERED: fentaNYL 100 MCG/2 ML VIAL ONE (08:24)
[2022-03-22] MEDS ORDERED: ePHEDrine 50 MG/ML VIAL ONE (08:25)
[2022-03-22] MEDS ORDERED: PHENYLEPHRINE 1 MG/10 ML SYRINGE IV ONE ×4 (08:26→10:13)
[2022-03-22 08:40] LABS: Calcium 9.9 MG/DL (8.5-10.1); Osmolality,Calculated 288.3 MOS/KG (273-304); Potassium 3.6 MMOL/L (3.5-5.1)
[2022-03-22] MEDS ORDERED: SODIUM CHLORIDE 0.9% 100 ML IV ONE (09:48)
[2022-03-22] MEDS ORDERED: EPINEPHrine 1 MG/ML VIAL ONE (09:48)
[2022-03-22] MEDS ORDERED: ACETAMINOPHEN INJ 1,000 MG/100 ML VIAL IV ONE (09:56)
[2022-03-22] MEDS ORDERED: CALCIUM CHLORIDE 1,000 MG/10 ML VIAL IV ONE (10:25)
[2022-03-22] MEDS ORDERED: DEXTROSE 10% 250 ML BAG IV PRN (10:41)
[2022-03-22] MEDS ORDERED: ONDANSETRON 4 MG/2 ML VIAL IV PRN (10:41)
[2022-03-22] MEDS ORDERED: GLUCAGON 1 MG VIAL IM PRN (10:41)
[2022-03-22] MEDS ORDERED: ZINC OXIDE PASTE 113 GM TUBE TOP PRN (10:48)
[2022-03-22] MEDS: SODIUM CHLORIDE 0.9% 250 ML IV SCH ×2 (10:49→21:55)
[2022-03-22] MEDS: SODIUM CHLORIDE 0.45% 1,000 ML IV SCH (11:17)
[2022-03-22] MEDS: INSULIN REGULAR 100 UNIT/ML SUBCUT SCH ×5 (11:19→21:55)
[2022-03-22] MEDS ORDERED: VANCOMYCIN INJ 1,000 MG in SODIUM CHLORIDE 0.9% 250 ML IV ONE (13:00)
[2022-03-22] MEDS: ATORVASTATIN 20 MG TABLET PO SCH (21:45)
[2022-03-22] MEDS: MENTHOL/ZINC OXIDE OINT 71 GM JAR TOP SCH (21:57)
[2022-03-23] MEDS: HYDROmorphone 1 MG/1 ML SYRINGE IV PRN ×2 (00:32→13:28)
[2022-03-23] MEDS: CHOLESTYRAMINE 4 GM PACK PO SCH ×3 (00:33→21:37)
[2022-03-23] MEDS: INSULIN REGULAR 100 UNIT/ML SUBCUT SCH ×9 (00:33→20:52)
[2022-03-23 05:16] LABS: Basophils # 0.1 10*3/uL (0.0-0.2); Basophils % 0.5 % (0.0-0.8); Eosinophils % 0.4 % (0.00-10.9); Hematocrit 30.3 VOL% (42.0-52.0); Hemoglobin 9.4 GM/DL (14.0-18.0); Immature Granulocytes % 0.4 %; Immature Granulocytes Absolute 0.04 #; Lymphocytes # 2.5 10*3/uL (1.4-4.0); Lymphocytes % 24.8 % (21.2-54.2); Mean Corpuscular Volume 96.5 FL (87-102); Mean Platelet Volume 9.6 FL (9.6-12.0); Monocytes # 1.2 10*3/uL (0.11-0.8); Monocytes % 11.6 % (1.7-12.7); NRBC # 0.08 10*3/uL; Neutrophils % 62.3 % (38.7-73.9); Platelet Count 159 T/CUMM (130-400); Red Blood Count 3.14 MC/CUMM (3.8-5.5); Red Cell Distribution Width 17.1 % (9.3-17.3); White Blood Count 9.9 T/CUMM (4-12)
[2022-03-23 05:37] LABS: Calcium 9.7 MG/DL (8.5-10.1); Potassium 3.4 MMOL/L (3.5-5.1)
[2022-03-23] MEDS: FAMOTIDINE 20 MG TABLET PO SCH (09:04)
[2022-03-23] MEDS: allopurinoL 100 MG TABLET PO SCH (09:04)
[2022-03-23] MEDS: ASPIRIN CHEW 81 MG TABLET PO SCH (09:04)
[2022-03-23] MEDS: CHOLECALCIFEROL 1,000 UNIT TABLET PO SCH (09:04)
[2022-03-23] MEDS: MENTHOL/ZINC OXIDE OINT 71 GM JAR TOP SCH ×2 (09:05→20:47)
[2022-03-23] MEDS: SODIUM CHLORIDE 0.45% 1,000 ML IV SCH (12:23)
[2022-03-23] MEDS: ATORVASTATIN 20 MG TABLET PO SCH (20:52)
[2022-03-24 05:59] LABS: Basophils % 0.3 % (0.0-0.8); Eosinophils # 0.1 10*3/uL (0.0-0.87); Eosinophils % 0.8 % (0.00-10.9); Hematocrit 27.6 VOL% (42.0-52.0); Hemoglobin 8.7 GM/DL (14.0-18.0); Immature Granulocytes % 0.5 %; Immature Granulocytes Absolute 0.06 #; Lymphocytes # 2.4 10*3/uL (1.4-4.0); Mean Corpuscular HGB Conc 31.5 GM/DL (32-36); Mean Corpuscular Volume 96.5 FL (87-102); Mean Platelet Volume 9.2 FL (9.6-12.0); Monocytes # 1.3 10*3/uL (0.11-0.8); Monocytes % 11.1 % (1.7-12.7); NRBC # 0.03 10*3/uL; Neutrophils % 67.3 % (38.7-73.9); Platelet Count 141 T/CUMM (130-400); Red Blood Count 2.86 MC/CUMM (3.8-5.5); Red Cell Distribution Width 17.7 % (9.3-17.3); White Blood Count 11.7 T/CUMM (4-12)
[2022-03-24 06:19] LABS: Calcium 9.5 MG/DL (8.5-10.1); Osmolality,Calculated 284.5 MOS/KG (273-304); Phosphorous 3.1 MG/DL (2.5-4.9); Potassium 3.4 MMOL/L (3.5-5.1); Uric Acid 4.7 MG/DL (3.5-7.2)
[2022-03-24] MEDS: INSULIN REGULAR 100 UNIT/ML SUBCUT SCH ×7 (07:28→20:43)
[2022-03-24] MEDS: ASPIRIN CHEW 81 MG TABLET PO SCH (09:17)
[2022-03-24] MEDS: allopurinoL 100 MG TABLET PO SCH (09:18)
[2022-03-24] MEDS: CHOLECALCIFEROL 1,000 UNIT TABLET PO SCH (09:18)
[2022-03-24] MEDS: MENTHOL/ZINC OXIDE OINT 71 GM JAR TOP SCH ×2 (09:18→20:44)
[2022-03-24] MEDS: FAMOTIDINE 20 MG TABLET PO SCH (09:18)
[2022-03-24] MEDS: CHOLESTYRAMINE 4 GM PACK PO SCH ×2 (09:18→21:39)
[2022-03-24] MEDS: PIPERACILLIN/TAZOBACTAM 3,375 MG in SODIUM CHLORIDE 0.9% 100 ML IV SCH ×2 (12:04→23:40)
[2022-03-24] MEDS: ATORVASTATIN 20 MG TABLET PO SCH (20:43)
[2022-03-25 08:07] LABS: Basophils % 0.4 % (0.0-0.8); Eosinophils # 0.2 10*3/uL (0.0-0.87); Eosinophils % 1.6 % (0.00-10.9); Hematocrit 28.8 VOL% (42.0-52.0); Immature Granulocytes % 0.4 %; Immature Granulocytes Absolute 0.04 #; Lymphocytes # 2.1 10*3/uL (1.4-4.0); Lymphocytes % 20.4 % (21.2-54.2); Mean Corpuscular HGB Conc 31.3 GM/DL (32-36); Mean Corpuscular Volume 95.4 FL (87-102); Mean Platelet Volume 9.3 FL (9.6-12.0); Monocytes % 10.1 % (1.7-12.7); Neutrophils % 67.1 % (38.7-73.9); Platelet Count 142 T/CUMM (130-400); Red Blood Count 3.02 MC/CUMM (3.8-5.5); Red Cell Distribution Width 18.3 % (9.3-17.3)
[2022-03-25 08:27] LABS: Calcium 9.7 MG/DL (8.5-10.1); Osmolality,Calculated 296.1 MOS/KG (273-304); Potassium 3.6 MMOL/L (3.5-5.1)
[2022-03-25] MEDS: ASPIRIN CHEW 81 MG TABLET PO SCH (09:15)
[2022-03-25] MEDS: CHOLESTYRAMINE 4 GM PACK PO SCH ×2 (09:16→22:14)
[2022-03-25] MEDS: INSULIN REGULAR 100 UNIT/ML SUBCUT SCH ×4 (09:16→22:13)
[2022-03-25] MEDS: CHOLECALCIFEROL 1,000 UNIT TABLET PO SCH (09:16)
[2022-03-25] MEDS: allopurinoL 100 MG TABLET PO SCH (09:16)
[2022-03-25] MEDS: MENTHOL/ZINC OXIDE OINT 71 GM JAR TOP SCH ×2 (09:17→22:12)
[2022-03-25] MEDS: FAMOTIDINE 20 MG TABLET PO SCH (09:17)
[2022-03-25] MEDS: PIPERACILLIN/TAZOBACTAM 3,375 MG in SODIUM CHLORIDE 0.9% 100 ML IV SCH ×2 (15:03→23:17)
[2022-03-25] MEDS: VANCOMYCIN INJ 1,000 MG in SODIUM CHLORIDE 0.9% 250 ML IV SCH (16:12)
[2022-03-25] MEDS: ATORVASTATIN 20 MG TABLET PO SCH (22:12)
[2022-03-26] MEDS: INSULIN REGULAR 100 UNIT/ML SUBCUT SCH ×4 (07:30→21:48)
[2022-03-26] MEDS: allopurinoL 100 MG TABLET PO SCH (10:15)
[2022-03-26] MEDS: FAMOTIDINE 20 MG TABLET PO SCH (10:15)
[2022-03-26] MEDS: ASPIRIN CHEW 81 MG TABLET PO SCH (10:15)
[2022-03-26] MEDS: CHOLESTYRAMINE 4 GM PACK PO SCH ×2 (10:16→21:46)
[2022-03-26] MEDS: CHOLECALCIFEROL 1,000 UNIT TABLET PO SCH (10:16)
[2022-03-26] MEDS: PIPERACILLIN/TAZOBACTAM 3,375 MG in SODIUM CHLORIDE 0.9% 100 ML IV SCH ×2 (14:07→23:43)
[2022-03-26] MEDS: MENTHOL/ZINC OXIDE OINT 71 GM JAR TOP SCH ×2 (19:41→21:48)
[2022-03-26] MEDS: ATORVASTATIN 20 MG TABLET PO SCH (21:46)
[2022-03-27] MEDS: FAMOTIDINE 20 MG TABLET PO SCH (09:50)
[2022-03-27] MEDS: MENTHOL/ZINC OXIDE OINT 71 GM JAR TOP SCH ×2 (09:50→22:00)
[2022-03-27] MEDS: ASPIRIN CHEW 81 MG TABLET PO SCH (09:50)
[2022-03-27] MEDS: CHOLECALCIFEROL 1,000 UNIT TABLET PO SCH (09:51)
[2022-03-27] MEDS: CHOLESTYRAMINE 4 GM PACK PO SCH ×2 (09:51→22:35)
[2022-03-27] MEDS: allopurinoL 100 MG TABLET PO SCH (09:51)
[2022-03-27] MEDS: INSULIN REGULAR 100 UNIT/ML SUBCUT SCH ×4 (09:56→22:00)
[2022-03-27] MEDS: PIPERACILLIN/TAZOBACTAM 3,375 MG in SODIUM CHLORIDE 0.9% 100 ML IV SCH ×2 (11:29→23:43)
[2022-03-27] MEDS: ATORVASTATIN 20 MG TABLET PO SCH (22:35)
[2022-03-28] MEDS: HYDROmorphone 1 MG/1 ML SYRINGE IV PRN (01:36)
[2022-03-28] MEDS: INSULIN REGULAR 100 UNIT/ML SUBCUT SCH ×4 (08:08→22:03)
[2022-03-28] MEDS: CHOLESTYRAMINE 4 GM PACK PO SCH ×2 (14:18→22:03)
[2022-03-28] MEDS: allopurinoL 100 MG TABLET PO SCH (14:18)
[2022-03-28] MEDS: CHOLECALCIFEROL 1,000 UNIT TABLET PO SCH (14:18)
[2022-03-28] MEDS: ASPIRIN CHEW 81 MG TABLET PO SCH (14:18)
[2022-03-28] MEDS: PIPERACILLIN/TAZOBACTAM 3,375 MG in SODIUM CHLORIDE 0.9% 100 ML IV SCH (14:18)
[2022-03-28] MEDS: FAMOTIDINE 20 MG TABLET PO SCH (14:18)
[2022-03-28] MEDS: MENTHOL/ZINC OXIDE OINT 71 GM JAR TOP SCH ×2 (16:20→22:03)
[2022-03-28] MEDS: VANCOMYCIN INJ 1,000 MG in SODIUM CHLORIDE 0.9% 250 ML IV SCH (18:24)
[2022-03-28] MEDS: ATORVASTATIN 20 MG TABLET PO SCH (22:03)
[2022-03-29] MEDS: PIPERACILLIN/TAZOBACTAM 3,375 MG in SODIUM CHLORIDE 0.9% 100 ML IV SCH (04:38)
[2022-03-29] MEDS: INSULIN REGULAR 100 UNIT/ML SUBCUT SCH ×4 (08:11→21:18)
[2022-03-29] MEDS: ASPIRIN CHEW 81 MG TABLET PO SCH (09:16)
[2022-03-29] MEDS: CHOLESTYRAMINE 4 GM PACK PO SCH ×2 (09:16→21:15)
[2022-03-29] MEDS: FAMOTIDINE 20 MG TABLET PO SCH (09:17)
[2022-03-29] MEDS: MENTHOL/ZINC OXIDE OINT 71 GM JAR TOP SCH ×2 (09:17→21:16)
[2022-03-29] MEDS: CHOLECALCIFEROL 1,000 UNIT TABLET PO SCH (09:17)
[2022-03-29] MEDS: allopurinoL 100 MG TABLET PO SCH (09:17)
[2022-03-29] MEDS: LEVOFLOXACIN 500 MG TABLET PO SCH (09:18)
[2022-03-29] MEDS: ATORVASTATIN 20 MG TABLET PO SCH (21:15)
[2022-03-30 05:21] LABS: Basophils % 0.5 % (0.0-0.8); Eosinophils # 0.3 10*3/uL (0.0-0.87); Eosinophils % 5.3 % (0.00-10.9); Hematocrit 27.4 VOL% (42.0-52.0); Hemoglobin 8.5 GM/DL (14.0-18.0); Immature Granulocytes % 0.5 %; Immature Granulocytes Absolute 0.03 #; Lymphocytes % 35.2 % (21.2-54.2); Mean Corpuscular Volume 96.5 FL (87-102); Mean Platelet Volume 9.6 FL (9.6-12.0); Monocytes # 0.8 10*3/uL (0.11-0.8); Monocytes % 14.3 % (1.7-12.7); Neutrophils % 44.2 % (38.7-73.9); Platelet Count 142 T/CUMM (130-400); Red Blood Count 2.84 MC/CUMM (3.8-5.5); Red Cell Distribution Width 17.3 % (9.3-17.3); White Blood Count 5.7 T/CUMM (4-12)
[2022-03-30 05:44] LABS: Alanine Aminotransferase < 9 U/L (16-61); Alkaline Phosphatase 64 U/L (45-117); Aspartate Amino Transferase 15 U/L (0-37); Bilirubin,Total < 0.39 MG/DL (0.20-1.00); Blood Urea Nitrogen 21 MG/DL (7-18); Calcium 9.2 MG/DL (8.5-10.1); Carbon Dioxide 28 MMOL/L (21-32); Chloride 108 MMOL/L (98-107); Glucose 132 MG/DL (74-106); Phosphorous 3.7 MG/DL (2.5-4.9); Potassium 3.5 MMOL/L (3.5-5.1); Sodium 143 MMOL/L (136-145); Total Protein 6.7 G/DL (6.4-8.2); Uric Acid 4.1 MG/DL (3.5-7.2)
[2022-03-30] MEDS: INSULIN REGULAR 100 UNIT/ML SUBCUT SCH ×4 (08:00→21:44)
[2022-03-30] MEDS: MENTHOL/ZINC OXIDE OINT 71 GM JAR TOP SCH ×2 (08:04→21:44)
[2022-03-30] MEDS: ASPIRIN CHEW 81 MG TABLET PO SCH (08:04)
[2022-03-30] MEDS: FAMOTIDINE 20 MG TABLET PO SCH (08:05)
[2022-03-30] MEDS: allopurinoL 100 MG TABLET PO SCH (08:05)
[2022-03-30] MEDS: CHOLESTYRAMINE 4 GM PACK PO SCH ×2 (09:04→21:44)
[2022-03-30] MEDS: ATORVASTATIN 20 MG TABLET PO SCH (21:44)
[2022-03-31] MEDS: INSULIN REGULAR 100 UNIT/ML SUBCUT SCH ×2 (07:56→11:34)
[2022-03-31] MEDS: ASPIRIN CHEW 81 MG TABLET PO SCH (09:04)
[2022-03-31] MEDS: LEVOFLOXACIN 500 MG TABLET PO SCH (09:05)
[2022-03-31] MEDS: FAMOTIDINE 20 MG TABLET PO SCH (09:05)
[2022-03-31] MEDS: CHOLESTYRAMINE 4 GM PACK PO SCH (09:05)
[2022-03-31] MEDS: allopurinoL 100 MG TABLET PO SCH (09:05)
[2022-03-31] MEDS: MENTHOL/ZINC OXIDE OINT 71 GM JAR TOP SCH (09:09)
[2022-03-31 11:39] VITALS: BP 126/56
== END 2022-03-31 11:40 | DRG 492 ==
LOC: N.SDSINP 06:58 → N.OR 06:58 → N.3E 10:41
PROVIDERS: ADMIT Surgery; ATTEND Surgery